=== PATIENT | male | born 1955 | race Two or more races ===

== ENCOUNTER 2023-12-23 13:02 | Outpatient (RCR) | payer MEDICARE, BC, SELFPAY ==
[2023-12-22 15:14] LABS: Basophils # (Auto) 0.1 Thou/mm3 (0.0-0.2); Basophils % (Auto) 1 % (0-2.5); Eosinophils # (Auto) 0.4 Thou/mm3 (0.0-0.5); Eosinophils % (Auto) 6 % (0-10); Hematocrit 41.3 % (41.0-53.0); Immature Granulocytes % (Auto) 0 % (0-0); Immature Granulocytes Auto 0.02 Thou/mm3 (0.00-0.00); Lymphocytes # (Auto) 1.5 Thou/mm3 (1.0-4.8); Lymphocytes % (Auto) 22 % (10-50); Mean Corpuscular HGB Conc 36.3 g/dl (31.0-37.0); Mean Corpuscular Hemoglobin 30.7 pg (25.0-35.0); Mean Corpuscular Volume 85 fL (80-100); Monocytes # (Auto) 0.4 Thou/mm3 (0.0-0.8); Monocytes % (Auto) 6 % (0-12); Neutrophils # (Auto) 4.3 Thou/mm3 (1.8-7.7); Neutrophils % (Auto) 64 % (37-80); Nucleated Red Blood Cell % 0 /100 WBC (0); Platelet Count 194 Thou/mm3 (140-440); RDW Standard Deviation 36.9 fL (35.1-43.9); Red Blood Count 4.89 Miln/mm3 (4.50-5.90); White Blood Count 6.7 Thou/mm3 (3.8-10.6)
[2023-12-22 15:39] LABS: Alanine Aminotransferase 118 U/L (10-49); Albumin, Serum 4.2 gm/dL (3.4-4.8); Albumin/Globulin Ratio 1.4 (1.2-2.2); Alkaline Phosphatase 155 U/L (46-116); Anion Gap 8 (7-16); Aspartate Amino Transferase 62 U/L (0-34); BUN/Creatinine Ratio 13 Ratio (12-20); Bilirubin,Total 0.4 mg/dL (0.3-1.2); Blood Urea Nitrogen 19 mg/dL (9-23); Calcium 9.6 mg/dL (8.3-10.6); Calcium (Corrected) 9.6 mg/dL (8.5-10.1); Chloride 100 mMol/L (98-107); Creatinine (Component) 1.5 mg/dL (0.6-1.3); Globulin 2.9 gm/dL (2.3-3.5); Glucose 372 mg/dL (74-106); Osmolality,Calculated 285 (275-295); Sodium 134 mMol/L (136-145); Thyroid Stimulating Hormone 1.31 uIU/mL (0.55-4.78); Total Protein 7.1 gm/dL (5.7-8.2); eGFR 51 See Note
== END 2024-01-15 23:59 | disposition home or self-care (01) ==
LOC: SCTC 13:02
PROVIDERS: PCP Nurse Practitioner Family; Referring Provider Nurse Practitioner Family; Visit Provider Internal Medicine Hematology & Oncology
DX: Z51.11 Encounter for antineoplastic chemotherapy (principal); C64.1 Malignant neoplasm of right kidney, except renal pelvis; Z90.5 Acquired absence of kidney; E11.9 Type 2 diabetes mellitus without complications; I10 Essential (primary) hypertension
CPT/HCPCS: 36591; 80053; 84443; 85025; 96413; A4216; J1642; J9271

== ENCOUNTER 2024-02-10 09:05 | Outpatient (RCR) | payer MEDICARE, BC, SELFPAY ==
[2024-01-19 15:53] LABS: Basophils # (Auto) 0.1 Thou/mm3 (0.0-0.2); Basophils % (Auto) 1 % (0-2.5); Eosinophils # (Auto) 0.6 Thou/mm3 (0.0-0.5); Eosinophils % (Auto) 9 % (0-10); Hematocrit 43.1 % (41.0-53.0); Hemoglobin 15.6 g/dL (13.5-16.0); Immature Granulocytes % (Auto) 0 % (0-0); Immature Granulocytes Auto 0.02 Thou/mm3 (0.00-0.00); Lymphocytes # (Auto) 1.8 Thou/mm3 (1.0-4.8); Lymphocytes % (Auto) 27 % (10-50); Mean Corpuscular HGB Conc 36.2 g/dl (31.0-37.0); Mean Corpuscular Hemoglobin 31.3 pg (25.0-35.0); Mean Corpuscular Volume 86 fL (80-100); Monocytes # (Auto) 0.5 Thou/mm3 (0.0-0.8); Monocytes % (Auto) 7 % (0-12); Neutrophils # (Auto) 3.7 Thou/mm3 (1.8-7.7); Neutrophils % (Auto) 56 % (37-80); Nucleated Red Blood Cell % 0 /100 WBC (0); Platelet Count 184 Thou/mm3 (140-440); Red Blood Count 4.99 Miln/mm3 (4.50-5.90); White Blood Count 6.6 Thou/mm3 (3.8-10.6)
[2024-01-19 16:12] LABS: Carcinoembryonic Antigen 4.2 ng/mL (0.0-5.0)
[2024-01-19 16:14] LABS: Alanine Aminotransferase 144 U/L (10-49); Albumin, Serum 4.5 gm/dL (3.4-4.8); Albumin/Globulin Ratio 1.8 (1.2-2.2); Alkaline Phosphatase 122 U/L (46-116); Anion Gap 7 (7-16); Aspartate Amino Transferase 116 U/L (0-34); BUN/Creatinine Ratio 14 Ratio (12-20); Bilirubin,Total 0.5 mg/dL (0.3-1.2); Blood Urea Nitrogen 18 mg/dL (9-23); Calcium 9.5 mg/dL (8.3-10.6); Calcium (Corrected) 9.5 mg/dL (8.5-10.1); Carbon Dioxide 26.7 mMol/L (20.0-31.0); Chloride 100 mMol/L (98-107); Creatinine (Component) 1.3 mg/dL (0.6-1.3); Globulin 2.5 gm/dL (2.3-3.5); Glucose 308 mg/dL (74-106); Osmolality,Calculated 282 (275-295); Potassium 3.8 mMol/L (3.4-5.1); Sodium 134 mMol/L (136-145); Thyroid Stimulating Hormone 0.88 uIU/mL (0.55-4.78); eGFR > 60 See Note
[2024-01-26 10:00] LABS: Basophils # (Auto) 0.1 Thou/mm3 (0.0-0.2); Basophils % (Auto) 1 % (0-2.5); Eosinophils # (Auto) 0.7 Thou/mm3 (0.0-0.5); Eosinophils % (Auto) 10 % (0-10); Hematocrit 44.3 % (41.0-53.0); Hemoglobin 15.6 g/dL (13.5-16.0); Immature Granulocytes % (Auto) 0 % (0-0); Immature Granulocytes Auto 0.01 Thou/mm3 (0.00-0.00); Lymphocytes # (Auto) 1.5 Thou/mm3 (1.0-4.8); Lymphocytes % (Auto) 22 % (10-50); Mean Corpuscular HGB Conc 35.2 g/dl (31.0-37.0); Mean Corpuscular Hemoglobin 30.4 pg (25.0-35.0); Mean Corpuscular Volume 86 fL (80-100); Monocytes # (Auto) 0.5 Thou/mm3 (0.0-0.8); Monocytes % (Auto) 7 % (0-12); Neutrophils # (Auto) 4.1 Thou/mm3 (1.8-7.7); Neutrophils % (Auto) 61 % (37-80); Nucleated Red Blood Cell % 0 /100 WBC (0); Platelet Count 168 Thou/mm3 (140-440); RDW Standard Deviation 38.6 fL (35.1-43.9); Red Blood Count 5.14 Miln/mm3 (4.50-5.90); White Blood Count 6.7 Thou/mm3 (3.8-10.6)
[2024-01-26 10:27] LABS: Alanine Aminotransferase 104 U/L (10-49); Albumin, Serum 4.5 gm/dL (3.4-4.8); Albumin/Globulin Ratio 1.6 (1.2-2.2); Alkaline Phosphatase 103 U/L (46-116); Anion Gap 7 (7-16); Aspartate Amino Transferase 81 U/L (0-34); BUN/Creatinine Ratio 11 Ratio (12-20); Bilirubin,Total 0.8 mg/dL (0.3-1.2); Blood Urea Nitrogen 16 mg/dL (9-23); Calcium 9.8 mg/dL (8.3-10.6); Calcium (Corrected) 9.8 mg/dL (8.5-10.1); Carbon Dioxide 25.6 mMol/L (20.0-31.0); Chloride 102 mMol/L (98-107); Creatinine (Component) 1.5 mg/dL (0.6-1.3); Globulin 2.8 gm/dL (2.3-3.5); Glucose 291 mg/dL (74-106); Osmolality,Calculated 282 (275-295); Potassium 3.7 mMol/L (3.4-5.1); Sodium 135 mMol/L (136-145); Thyroid Stimulating Hormone 1.58 uIU/mL (0.55-4.78); Total Protein 7.3 gm/dL (5.7-8.2); eGFR 51 See Note
[2024-01-26 11:12] LABS: Hepatitis A Antibody IgM Non Reactive (Non React); Hepatitis B Core Antibody IgM Non Reactive (Non React); Hepatitis B Surface Antigen Non Reactive (Non React); Hepatitis C Antibody Non Reactive (Non React)
--- NOTE | 2024-02-06 14:24 | CTCFLWUP_ITS ---
Patient: JAYSON GRIJALVA : 1955 Page 8 of 8 FOLLOW UP NOTE DATE OF SERVICE: 01/25/2024 NAME: JAYSON GRIJALVA ACCOUNT: [id number] : 1955 AGE: 68 INTERVAL HISTORY: Patient is doing well and here on adjuvant therapy for stage III renal cancer. ONCOLOGY HISTORY: DIAGNOSIS: Malignant neoplasm of right kidney, except renal pelvis [ICD10] C64.1 DATE OF DIAGNOSIS: 01/21/2023 clear-cell type renal cell carcinoma of right kidney status post robotic assisted nephrecto my STAGE/TNM: Stage III T1a N1 M0 TREATMENT HISTORY: Care?Plan Start?Date Cycle Day Intent Pembrolizumab?alone 06/09/2023 1 Curative?(adjuvant) Planned for 1 year of adjuvant therapy with the likely completion date of 07/04/2024 HISTORY OF PRESENT ILLNESS: Mr. Grijalva is a 68-year-old male with the following oncology history. 05/22/2021: Mr. Grijalva had ultrasound of the abdomen to evaluate the cause for abdominal pain 09/12/2021: CT of the abdomen and pelvis with IV contrast 09/26/2022: MRI of the abdomen with and without contrast 01/21/2023: Robotic right partial nephrectomy and intraoperative ultrasound 04/01/2023: CT scan of the chest abdomen and pelvis with IV contrast 04/30/2023: MRI of the abdomen with and without contrast 06/02/2023: CT-guided biopsy of the right kidney mass lesion 06/09/2023: Mr. Grijalva received first dose of adjuvant pembrolizumab. OTHER MEDICAL HISTORY/CONDITIONS: Diabetes HTN BPH Clear cell renal cancer right kidney - 01/21/23 Lap Cholecystectomy -06/2021 Robotic right partial nephrectomy - 01/21/23 - [facility] FAMILY HISTORY: Sibling: Brother - kdney- dx late 40's; sister-kidney - dx 60 SOCIAL HISTORY: Occupational?History:?Retired - [employer] Education?Level:?Completed High School Marital?Status:? Tobacco?Use?Years:?10 Tobacco Use:?2 cigarettes / day x 10 yrs. Quit - 20yrs ago ETOH?Use:?Socailly Drug?Note:?Smoke marijuana occ; Cocaine daily x 5 yrs- Quit 30+ yrs ago Social?History?Note:?Lives MEDICATIONS: 1. glipiZIDE - 10 mg 1 tab Twice a Day 2. lorazepam - 0.5 mg 1 tab Daily 3. losartan - 100 mg 1 tab Daily 4. tamsulosin - 0.4 mg 1 Capsule Daily Medications Last Reconciled by Jacqueline Ponce MA on 01/25/2024 ALLERGIES: No Known Drug Allergies REVIEW OF SYSTEMS: A complete 14-point review of systems was performed and is negative except as noted in interval histo ry. PHYSICAL EXAMINATION: VITAL SIGNS: Temperature?98.3, B/P?157/101, Oxygen?Saturation?98% Weight?198?lbs (Change?since? 4:?1.2?lbs) PAIN: 0 - No pain ECOG Performance Status: None GENERAL APPEARANCE: Appears well, in no apparent distress, appropriately interactive. HEENT: Normocephalic, no temporal wasting, normal conjunctiva, no scleral icterus, normal hearing, li ps without lesions, neck normal range of motion. CARDIOVASCULAR: Not assessed. PULMONARY: Normal respiratory effort, no respiratory distress or use of accessory muscles, speaking i n full sentences, no tachypnea. EXTREMITIES: No pedal edema or cyanosis. SKIN: Normal skin appearance. NEUROLOGIC: Alert and oriented x4. PSHYCHIATRIC: Appropriate affect, mood normal, behavior normal, intact thought and speech. LABORATORY DATA: I have personally reviewed and interpreted each of the patient?s relevant lab tests, abnormal finding s are below: Date 01/26/24 ??GLUCOSE,RANDOM?(mg/dL) 291?H ??BLOOD?UREA?NITROGEN?(mg/dL) 16 ??CREATININE?(mg/dL) 1.50?H ??SODIUM?(mmol/L) 135?L ??POTASSIUM?(mmol/L) 3.7 ??CHLORIDE?(mmol/L) 102 ??CrCl?(CandG)?(ml/min) 51.90 ??AST/SGOT?(Unit/L) 81?H ??ALT/SGPT?(Unit/L) 104?H ??ALKALINE?PHOSPHATASE?(Unit/L) 103 ??BILIRUBIN,?TOTAL?(mg/dL) 0.8 ??PROTEIN?TOTAL?(gm/dl) 7.3 ??ALBUMIN,?SERUM?(gm/dl) 4.5 ??GLOBULIN?(gm/dl) 2.8 ??ALBUMIN/GLOBULIN?RATIO 1.6 ??CALCIUM,?SERUM?(mg/dL) 9.8 ??CALCIUM?SERUM?(CORRECTED)?(mg/dL) 9.8 ASSESSMENT/PLAN: #1 stage III (pT1a, N1, cM0) clear-cell type renal cell carcinoma of the right kidney. S/p robotic a ssisted right partial nephrectomy (01/21/2023) Mr. Grijalva received first dose of adjuvant pembrolizumab on 06/09/2023. Biopsy of the right kidney mass lesion showed it to be scar tissue (06/02/2023). Patient has been on pembrolizumab since May 2023. tolerating it very well without any significant side effects. Continue pembrolizumab as per treatment plan. The plan is to give 1 year of Keytruda with stop date in June 2024 Will see him back in clinic in 2 months for follow-up #2 type 2 diabetes-follow with PCP Patient have uncontrolled diabetes as he tends to by his elevated glucose and low sodium Also noted to have worsening kidney function as well as mild transaminitis Patient advised to follow with PCP closely to control his blood sugar Advised diet and medication compliance #3 hypertension follow with PCP Uncontrolled Patient advised to follow with PCP ORDERS: CBC CMP TSH RETURN TO CLINIC: 2 months BILLING AND COMPLIANCE: I reviewed external records from providers outside my specialty as summarized above. I spent a total of 50 minutes on this patient?s care on the day of their visit excluding time spent related to any bi lled procedures. This time includes time spent with the patient as well as time spent documenting in the medical record, reviewing patients records and tests, obtaining history, placing orders, communi cating with other healthcare professionals, counseling the patient, family or caregiver, and/or care coordination for the diagnoses above. Electronically Signed by: {Object.Sanct_ID*[email or web address]@M}, {Object.Sanct_ID*[email or web address]@U} D: {Object.Sanct_Date} T: {Object.Sanct_Time} CC: PCP: Erica Tate Referring: Erica Tate This document was completed utilizing speech recognition software. Grammatical errors, random word in sertions, pronoun errors, and incomplete sentences are an occasional consequence of this system due t o software limitations, ambient noise, and hardware issues. Any formal questions or concerns about th e content, text or information contained within the body of this dictation should be directly address ed to the provider for clarification.
--- NOTE | 2024-02-06 14:26 | CTCFLWUP_ITS ---
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 Grijalva is a 68-year-old male with the following oncology history. 05/22/2021: Mr. Grijalva had ultrasound of the abdomen to evaluate the cause for abdominal pain 09/12/2021: CT of the abdomen and pelvis with IV contrast 09/26/2022: MRI of the abdomen with and without contrast 01/21/2023: Robotic right partial nephrectomy and intraoperative ultrasound 04/01/2023: CT scan of the chest abdomen and pelvis with IV contrast 04/30/2023: MRI of the abdomen with and without contrast 06/02/2023: CT-guided biopsy of the right kidney mass lesion 06/09/2023: Mr. Grijalva received first dose of adjuvant pembrolizumab. OTHER MEDICAL HISTORY/CONDITIONS: Diabetes HTN BPH Clear cell renal cancer right kidney - 01/21/23 Lap Cholecystectomy -06/2021 Robotic right partial nephrectomy - 01/21/23 - [facility] FAMILY HISTORY: Sibling: Brother - jm- dx late 40's; sister-kidney - dx 60 SOCIAL HISTORY: Occupational?History:?Retired - [employer] Education?Level:?Completed High School Marital?Status:? Tobacco?Use?Years:?10 Tobacco Use:?2 cigarettes / day x 10 yrs. Quit - 20yrs ago ETOH?Use:?Socailly Drug?Note:?Smoke marijuana occ; Cocaine daily x 5 yrs- Quit 30+ yrs ago Social?History?Note:?Lives MEDICATIONS: 1. glipiZIDE - 10 mg 1 tab Twice a Day 2. lorazepam - 0.5 mg 1 tab Daily 3. losartan - 100 mg 1 tab Daily 4. tamsulosin - 0.4 mg 1 Capsule Daily Medications Last Reconciled by Jacqueline Ponce MA on 01/25/2024 ALLERGIES: No Known Drug Allergies REVIEW OF SYSTEMS: A complete 14-point review of systems was performed and is negative except as noted in interval histo ry. PHYSICAL EXAMINATION: VITAL SIGNS: Temperature?98.3, B/P?157/101, Oxygen?Saturation?98% Weight?198?lbs (Change?since? 4:?1.2?lbs) PAIN: 0 - No pain ECOG Performance Status: GENERAL APPEARANCE: Appears well, in no apparent distress, appropriately interactive. HEENT: Normocephalic, no temporal wasting, normal conjunctiva, no scleral icterus, normal hearing, li ps without lesions, neck normal range of motion. CARDIOVASCULAR: Not assessed. PULMONARY: Normal respiratory effort, no respiratory distress or use of accessory muscles, speaking i n full sentences, no tachypnea. EXTREMITIES: No pedal edema or cyanosis. SKIN: Normal skin appearance. NEUROLOGIC: Alert and oriented x4. PSHYCHIATRIC: Appropriate affect, mood normal, behavior normal, intact thought and speech. LABORATORY DATA: I have personally reviewed and interpreted each of the patient?s relevant lab tests, abnormal finding s are below: Date 01/26/24 ??GLUCOSE,RANDOM?(mg/dL) 291?H ??BLOOD?UREA?NITROGEN?(mg/dL) 16 ??CREATININE?(mg/dL) 1.50?H ??SODIUM?(mmol/L) 135?L ??POTASSIUM?(mmol/L) 3.7 ??CHLORIDE?(mmol/L) 102 ??CrCl?(CandG)?(ml/min) 51.90 ??AST/SGOT?(Unit/L) 81?H ??ALT/SGPT?(Unit/L) 104?H ??ALKALINE?PHOSPHATASE?(Unit/L) 103 ??BILIRUBIN,?TOTAL?(mg/dL) 0.8 ??PROTEIN?TOTAL?(gm/dl) 7.3 ??ALBUMIN,?SERUM?(gm/dl) 4.5 ??GLOBULIN?(gm/dl) 2.8 ??ALBUMIN/GLOBULIN?RATIO 1.6 ??CALCIUM,?SERUM?(mg/dL) 9.8 ??CALCIUM?SERUM?(CORRECTED)?(mg/dL) 9.8 ASSESSMENT/PLAN: #1 stage III (pT1a, N1, cM0) clear-cell type renal cell carcinoma of the right kidney. S/p robotic a ssisted right partial nephrectomy (01/21/2023) Mr. Grijalva received first dose of adjuvant pembrolizumab on 06/09/2023. Biopsy of the right kidney mass lesion showed it to be scar tissue (06/02/2023). Patient has been on pembrolizumab since May 2023. tolerating it very well without any significant side effects. Continue pembrolizumab as per treatment plan. The plan is to give 1 year of Keytruda with stop date in June 2024 Will see him back in clinic in 2 months for follow-up #2 type 2 diabetes-follow with PCP Patient have uncontrolled diabetes as he tends to by his elevated glucose and low sodium Also noted to have worsening kidney function as well as mild transaminitis Patient advised to follow with PCP closely to control his blood sugar Advised diet and medication compliance #3 hypertension follow with PCP Uncontrolled Patient advised to follow with PCP CBC CMP TSH RETURN TO CLINIC: 2 months BILLING AND COMPLIANCE: I reviewed external records from providers outside my specialty as summarized above. I spent a total of 50 minutes on this patient?s care on the day of their visit excluding time spent related to any bi lled procedures. This time includes time spent with the patient as well as time spent documenting in the medical record, reviewing patients records and tests, obtaining history, placing orders, communi cating with other healthcare professionals, counseling the patient, family or caregiver, and/or care coordination for the diagnoses above. Electronically Signed by: Jordin Vargas MD T: 2:24 PM Electronically Signed by: Jordin Vargas MD T: 2:24 PM CC: This document was completed utilizing speech recognition software. Grammatical errors, random word in sertions, pronoun errors, and incomplete sentences are an occasional consequence of this system due t o software limitations, ambient noise, and hardware issues. Any formal questions or concerns about th e content, text or information contained within the body of this dictation should be directly address ed to the provider for clarification.
--- NOTE | 2024-02-06 14:35 | CTCFLWUP_ITS ---
Patient: JAYSON GRIJALVA : 1955 Page 2 of 2 FOLLOW UP NOTE DATE OF SERVICE: 01/25/2024 NAME: JAYSON GRIJALVA ACCOUNT: [id number] : 1955 AGE: 68 INTERVAL HISTORY: ONCOLOGY HISTORY: DIAGNOSIS: Malignant neoplasm of right kidney, except renal pelvis [ICD10] C64.1 DATE OF DIAGNOSIS: 01/21/2023 clear-cell type renal cell carcinoma of right kidney status post robotic assisted nephrec manjula STAGE/TNM: Stage III T1a N1 M0 TREATMENT HISTORY: Care?Plan Start?Date Cycle Day Intent Pembrolizumab?alone 06/09/2023 1 21 Curative?(adjuvant) Planned for 1 year of adjuvant therapy with the likely completion date of 07/04/2024#1 stage III (pT1a , N1, cM0) clear-cell type renal cell carcinoma of the right kidney. S/p robotic assisted right parti al nephrectomy (01/21/2023) Mr. Grijalva received first dose of adjuvant pembrolizumab on 06/09/2023. B iopsy of the right kidney mass lesion showed it to be scar tissue (06/02/2023). Patient has been on pembrolizumab since May 2023. tolerating it very well without any significant side effects. Continue pembrolizumab as per treatment plan. The plan is to give 1 year of Keytruda with stop date i n June 2024 Will see him back in clinic in 2 months for follow-up #2 type 2 diabetes-follow with PCP P atient have uncontrolled diabetes as he tends to by his elevated glucose and low sodium Also noted to have worsening kidney function as well as mild transaminitis Patient advised to follow with PCP [place] to control his blood sugar Advised diet and medication compliance #3 hypertension follow with PCP Uncontrolled Patient advised to follow with PCP CBC CMP TSH HISTORY OF PRESENT ILLNESS: Mr. Grijalva is a 68-year-old male with the following oncology history. 05/22/2021: Mr. Grijalva had ultrasound of the abdomen to evaluate the cause for abdominal pain 09/12/2021: CT of the abdomen and pelvis with IV contrast 09/26/2022: MRI of the abdomen with and without contrast 01/21/2023: Robotic right partial nephrectomy and intraoperative ultrasound 04/01/2023: CT scan of the chest abdomen and pelvis with IV contrast 04/30/2023: MRI of the abdomen with and without contrast 06/02/2023: CT-guided biopsy of the right kidney mass lesion 06/09/2023: Mr. Grijalva received first dose of adjuvant pembrolizumab. OTHER MEDICAL HISTORY/CONDITIONS: Diabetes HTN BPH Clear cell renal cancer right kidney - 01/21/23 Lap Cholecystectomy -06/2021 Robotic right partial nephrectomy - 01/21/23 - [facility] FAMILY HISTORY: Sibling: Brother - jm- dx late 40's; sister-kidney - dx 60 SOCIAL HISTORY: Occupational?History:?Retired - [employer] Education?Level:?Completed High School Marital?Status:? Tobacco?Use?Years:?10 Tobacco Use:?2 cigarettes / day x 10 yrs. Quit - 20yrs ago ETOH?Use:?Socailly Drug?Note:?Smoke marijuana occ; Cocaine daily x 5 yrs- Quit 30+ yrs ago Social?History?Note:?Lives MEDICATIONS: 1. glipiZIDE - 10 mg 1 tab Twice a Day 2. lorazepam - 0.5 mg 1 tab Daily 3. losartan - 100 mg 1 tab Daily 4. tamsulosin - 0.4 mg 1 Capsule Daily Medications Last Reconciled by Jacqueline Ponce MA on 01/25/2024 ALLERGIES: No Known Drug Allergies REVIEW OF SYSTEMS: A complete 14-point review of systems was performed and is negative except as noted in interval histo ry. PHYSICAL EXAMINATION: VITAL SIGNS: Temperature?98.3, B/P?157/101, Oxygen?Saturation?98% Weight?198?lbs (Change?since? 4:?1.2?lbs) PAIN: 0 - No pain GENERAL APPEARANCE: Appears well, in no apparent distress, appropriately interactive. HEENT: Normocephalic, no temporal wasting, normal conjunctiva, no scleral icterus, normal hearing, li ps without lesions, neck normal range of motion. CARDIOVASCULAR: Not assessed. PULMONARY: Normal respiratory effort, no respiratory distress or use of accessory muscles, speaking i n full sentences, no tachypnea. EXTREMITIES: No pedal edema or cyanosis. SKIN: Normal skin appearance. NEUROLOGIC: Alert and oriented x4. PSHYCHIATRIC: Appropriate affect, mood normal, behavior normal, intact thought and speech. LABORATORY DATA: I have personally reviewed and interpreted each of the patient?s relevant lab tests, abnormal finding s are below: Date 01/26/24 ??GLUCOSE,RANDOM?(mg/dL) 291?H ??BLOOD?UREA?NITROGEN?(mg/dL) 16 ??CREATININE?(mg/dL) 1.50?H ??SODIUM?(mmol/L) 135?L ??POTASSIUM?(mmol/L) 3.7 ??CHLORIDE?(mmol/L) 102 ??CrCl?(CandG)?(ml/min) 51.90 ??AST/SGOT?(Unit/L) 81?H ??ALT/SGPT?(Unit/L) 104?H ??ALKALINE?PHOSPHATASE?(Unit/L) 103 ??BILIRUBIN,?TOTAL?(mg/dL) 0.8 ??PROTEIN?TOTAL?(gm/dl) 7.3 ??ALBUMIN,?SERUM?(gm/dl) 4.5 ??GLOBULIN?(gm/dl) 2.8 ??ALBUMIN/GLOBULIN?RATIO 1.6 ??CALCIUM,?SERUM?(mg/dL) 9.8 ??CALCIUM?SERUM?(CORRECTED)?(mg/dL) 9.8 ASSESSMENT/PLAN: #1 stage III (pT1a, N1, cM0) clear-cell type renal cell carcinoma of the right kidney. S/p robotic a ssisted right partial nephrectomy (01/21/2023) Mr. Grijalva received first dose of adjuvant pembrolizumab on 06/09/2023. Biopsy of the right kidney mass lesion showed it to be scar tissue (06/02/2023). Patient has been on pembrolizumab since May 2023. tolerating it very well without any significant side effects. Continue pembrolizumab as per treatment plan. The plan is to give 1 year of Keytruda with stop date in June 2024 As patient have transaminitis will repeat labs and proceed with the Keytruda once labs have normalize d follow-up on the CT chest abdomen pelvis #2 type 2 diabetes-follow with PCP Patient have uncontrolled diabetes as he tends to by his elevated glucose and low sodium Also noted to have worsening kidney function as well as mild transaminitis Patient advised to follow with PCP closely to control his blood sugar Advised diet and medication compliance #3 hypertension follow with PCP Uncontrolled Patient advised to follow with PCP CBC CMP TSH CBC CMP TSH T4 cortisol CT scan chest abdomen pelvis RETURN TO CLINIC: 4 weeks BILLING AND COMPLIANCE: I reviewed external records from providers outside my specialty as summarized above. I spent a total of 50 minutes on this patient?s care on the day of their visit excluding time spent related to any bi lled procedures. This time includes time spent with the patient as well as time spent documenting in the medical record, reviewing patients records and tests, obtaining history, placing orders, communi cating with other healthcare professionals, counseling the patient, family or caregiver, and/or care coordination for the diagnoses above. Electronically Signed by: Jordin Vargas MD T: 2:32 PM CC: PCP: Erica Tate Referring: Erica Tate This document was completed utilizing speech recognition software. Grammatical errors, random word in sertions, pronoun errors, and incomplete sentences are an occasional consequence of this system due t o software limitations, ambient noise, and hardware issues. Any formal questions or concerns about th e content, text or information contained within the body of this dictation should be directly address ed to the provider for clarification.
[2024-02-08 06:44] LABS: Cortisol,total,LC/MS/MS* 17.2 mcg/dL; T3,Total* 116 ng/dL (76-181)
[2024-02-08 08:57] LABS: Basophils % (Auto) 1 % (0-2.5); Eosinophils # (Auto) 0.7 Thou/mm3 (0.0-0.5); Eosinophils % (Auto) 11 % (0-10); Hematocrit 38.5 % (41.0-53.0); Hemoglobin 13.3 g/dL (13.5-16.0); Immature Granulocytes % (Auto) 0 % (0-0); Immature Granulocytes Auto 0.02 Thou/mm3 (0.00-0.00); Lymphocytes # (Auto) 1.1 Thou/mm3 (1.0-4.8); Lymphocytes % (Auto) 17 % (10-50); Mean Corpuscular HGB Conc 34.5 g/dl (31.0-37.0); Mean Corpuscular Volume 87 fL (80-100); Monocytes # (Auto) 0.4 Thou/mm3 (0.0-0.8); Monocytes % (Auto) 7 % (0-12); Neutrophils # (Auto) 4.2 Thou/mm3 (1.8-7.7); Neutrophils % (Auto) 65 % (37-80); Nucleated Red Blood Cell % 0 /100 WBC (0); Platelet Count 163 Thou/mm3 (140-440); RDW Standard Deviation 38.3 fL (35.1-43.9); Red Blood Count 4.43 Miln/mm3 (4.50-5.90); White Blood Count 6.5 Thou/mm3 (3.8-10.6)
[2024-02-08 09:06] LABS: Carcinoembryonic Antigen 3.8 ng/mL (0.0-5.0)
[2024-02-08 09:07] LABS: Alanine Aminotransferase 52 U/L (10-49); Albumin, Serum 4.2 gm/dL (3.4-4.8); Albumin/Globulin Ratio 1.7 (1.2-2.2); Alkaline Phosphatase 105 U/L (46-116); Anion Gap 6 (7-16); Aspartate Amino Transferase 33 U/L (0-34); BUN/Creatinine Ratio 19 Ratio (12-20); Bilirubin,Total 0.4 mg/dL (0.3-1.2); Blood Urea Nitrogen 25 mg/dL (9-23); Calcium 9.3 mg/dL (8.3-10.6); Calcium (Corrected) 9.3 mg/dL (8.5-10.1); Carbon Dioxide 25.4 mMol/L (20.0-31.0); Chloride 109 mMol/L (98-107); Creatinine (Component) 1.3 mg/dL (0.6-1.3); Globulin 2.5 gm/dL (2.3-3.5); Glucose 218 mg/dL (74-106); Osmolality,Calculated 290 (275-295); Potassium 3.8 mMol/L (3.4-5.1); Sodium 140 mMol/L (136-145); Thyroid Stimulating Hormone 0.65 uIU/mL (0.55-4.78); Total Protein 6.7 gm/dL (5.7-8.2); eGFR > 60 See Note
== END 2024-02-15 23:59 | disposition home or self-care (01) ==
LOC: SCTC 09:05
PROVIDERS: PCP Nurse Practitioner Family; Referring Provider Nurse Practitioner Family; Visit Provider Internal Medicine Hematology & Oncology
DX: Z51.11 Encounter for antineoplastic chemotherapy (principal); C64.1 Malignant neoplasm of right kidney, except renal pelvis; Z90.5 Acquired absence of kidney; E11.65 Type 2 diabetes mellitus with hyperglycemia; I10 Essential (primary) hypertension
CPT/HCPCS: 36591; 80053; 80074; 82378; 82533; 84443; 84480; 85025; 96413; 99212; A4216; J1642; J9271; G0463

== ENCOUNTER → 2024-02-14 | Outpatient (CLI) | payer MEDICARE, BC, SELFPAY ==
--- NOTE | 2024-02-14 10:00 | XR_ITS ---
Examination: CT chest, without intravenous contrast. CT abdomen, without intravenous contrast. CT pelvis, without intravenous contrast. 2-D sagittal and coronal reconstructions. 3-D reconstructions. Date and time of exam:February 14, 2024 1018 hours INDICATIONS: Diagnosis malignant neoplasm of the kidney, restaging COMPARISON: June 02, 2023 CTDI vol (mgy) 19.7 DLP (MGycm)[id number] Technique: Multiple CT images, 3.0 mm slice thickness, obtained chest, abdomen, pelvis, with the high-resolution 64 slice scanner.. Sagittal and coronal 2-D reconstructions are obtained. 3-D reconstructions Low dose protocols were performed. One or more of the following dose reduction techniques were used; automated exposure control, adjustment of the mA and/or KV according to patient size, use of iterative reconstruction technique. Findings: AP dimension ascending thoracic aorta 4.1 cm Pulmonary artery segments are not enlarged No paratracheal tracheobronchial or bronchopulmonary adenopathy Moderate calcification left anterior descending coronary artery 5 mm pulmonary nodule right upper lobe image 84 No pneumonia or pulmonary edema, no pleural disease No visualized liver or splenic lesion Absent gallbladder No pancreatic or adrenal mass Complex partially cystic mass lateral margin upper pole left kidney 3.2 cm Abnormal hyperdense upper pelvic mass 25 mm, axial image 148 Partial right nephrectomy Aortic calcification no aneurysmal dilatation No pericecal inflammatory change Scattered colonic diverticulosis Urinary bladder intact Transverse prostate dimension 4.3 cm Severe osteopenia with advanced degenerative disc disease L4-L5, L5-S1 IMPRESSION: 3.2 cm complex partially cystic mass lateral margin upper pole left kidney Hyperdense upper left renal pelvic mass 25 mm Recommend MRI abdomen kidneys follow-up pre and postcontrast
== END | disposition home or self-care (01) ==
LOC: CCTX 09:48
PROVIDERS: PCP Nurse Practitioner Family; Referring Provider Urology; Visit Provider Physician Assistant
DX: N28.1 Cyst of kidney, acquired (principal); R19.00 Intra-abdominal and pelvic swelling, mass and lump, unspecified site; C64.1 Malignant neoplasm of right kidney, except renal pelvis
CPT/HCPCS: 71270; 74178; A4649; Q9967

== ENCOUNTER 2024-03-02 07:25 | Outpatient (RCR) | payer MEDICARE, SELFPAY ==
[2024-03-01 13:09] LABS: Alanine Aminotransferase 57 U/L (10-49); Albumin, Serum 4.6 gm/dL (3.4-4.8); Albumin/Globulin Ratio 1.7 (1.2-2.2); Alkaline Phosphatase 110 U/L (46-116); Anion Gap 11 (7-16); Aspartate Amino Transferase 47 U/L (0-34); BUN/Creatinine Ratio 14 Ratio (12-20); Bilirubin,Total 0.4 mg/dL (0.3-1.2); Blood Urea Nitrogen 17 mg/dL (9-23); Calcium 9.6 mg/dL (8.3-10.6); Calcium (Corrected) 9.6 mg/dL (8.5-10.1); Carbon Dioxide 25.4 mMol/L (20.0-31.0); Chloride 107 mMol/L (98-107); Creatinine (Component) 1.2 mg/dL (0.6-1.3); Globulin 2.7 gm/dL (2.3-3.5); Glucose 134 mg/dL (74-106); Osmolality,Calculated 288 (275-295); Potassium 3.6 mMol/L (3.4-5.1); Sodium 143 mMol/L (136-145); Thyroid Stimulating Hormone 0.62 uIU/mL (0.55-4.78); Total Protein 7.3 gm/dL (5.7-8.2); eGFR > 60 See Note
[2024-03-01 13:11] LABS: Carcinoembryonic Antigen 4.3 ng/mL (0.0-5.0)
[2024-03-01 15:52] LABS: Basophils # (Auto) 0.1 Thou/mm3 (0.0-0.2); Basophils % (Auto) 1 % (0-2.5); Eosinophils # (Auto) 0.8 Thou/mm3 (0.0-0.5); Eosinophils % (Auto) 12 % (0-10); Hematocrit 41.9 % (41.0-53.0); Hemoglobin 14.6 g/dL (13.5-16.0); Immature Granulocytes % (Auto) 0 % (0-0); Immature Granulocytes Auto 0.01 Thou/mm3 (0.00-0.00); Lymphocytes # (Auto) 1.4 Thou/mm3 (1.0-4.8); Lymphocytes % (Auto) 22 % (10-50); Mean Corpuscular HGB Conc 34.8 g/dl (31.0-37.0); Mean Corpuscular Volume 86 fL (80-100); Monocytes # (Auto) 0.4 Thou/mm3 (0.0-0.8); Monocytes % (Auto) 6 % (0-12); Neutrophils # (Auto) 3.5 Thou/mm3 (1.8-7.7); Neutrophils % (Auto) 58 % (37-80); Nucleated Red Blood Cell % 0 /100 WBC (0); Platelet Count 180 Thou/mm3 (140-440); RDW Standard Deviation 38.6 fL (35.1-43.9); Red Blood Count 4.87 Miln/mm3 (4.50-5.90); White Blood Count 6.1 Thou/mm3 (3.8-10.6)
== END 2024-03-17 23:59 | disposition home or self-care (01) ==
LOC: SCTC 07:25
PROVIDERS: PCP Nurse Practitioner Family; Referring Provider Nurse Practitioner Family; Visit Provider Internal Medicine Hematology & Oncology
DX: Z51.11 Encounter for antineoplastic chemotherapy (principal); C64.1 Malignant neoplasm of right kidney, except renal pelvis; Z90.5 Acquired absence of kidney; E11.9 Type 2 diabetes mellitus without complications; I10 Essential (primary) hypertension; Z79.84 Long term (current) use of oral hypoglycemic drugs
CPT/HCPCS: 36415; 36591; 80053; 80061; 82043; 82378; 82570; 84439; 84443; 85025; 96413; J1642; J7050; J9271

== ENCOUNTER → 2024-03-02 | Outpatient (CLI) | payer MEDICARE, SELFPAY ==
[2024-03-02 08:31] LABS: Basophils # (Auto) 0.1 Thou/mm3 (0.0-0.2); Basophils % (Auto) 1 % (0-2.5); Eosinophils # (Auto) 0.4 Thou/mm3 (0.0-0.5); Eosinophils % (Auto) 6 % (0-10); Hematocrit 43.3 % (41.0-53.0); Hemoglobin 14.7 g/dL (13.5-16.0); Immature Granulocytes % (Auto) 0 % (0-0); Immature Granulocytes Auto 0.03 Thou/mm3 (0.00-0.00); Lymphocytes # (Auto) 1.6 Thou/mm3 (1.0-4.8); Lymphocytes % (Auto) 21 % (10-50); Mean Corpuscular HGB Conc 33.9 g/dl (31.0-37.0); Mean Corpuscular Hemoglobin 29.5 pg (25.0-35.0); Mean Corpuscular Volume 87 fL (80-100); Monocytes # (Auto) 0.5 Thou/mm3 (0.0-0.8); Monocytes % (Auto) 7 % (0-12); Neutrophils % (Auto) 65 % (37-80); Nucleated Red Blood Cell % 0 /100 WBC (0); Platelet Count 196 Thou/mm3 (140-440); RDW Standard Deviation 38.4 fL (35.1-43.9); Red Blood Count 4.98 Miln/mm3 (4.50-5.90); White Blood Count 7.6 Thou/mm3 (3.8-10.6)
[2024-03-02 08:56] LABS: Alanine Aminotransferase 55 U/L (10-49); Albumin, Serum 4.4 gm/dL (3.4-4.8); Albumin/Globulin Ratio 1.7 (1.2-2.2); Alkaline Phosphatase 92 U/L (46-116); Anion Gap 8 (7-16); Aspartate Amino Transferase 36 U/L (0-34); BUN/Creatinine Ratio 17 Ratio (12-20); Bilirubin,Total 0.4 mg/dL (0.3-1.2); Blood Urea Nitrogen 20 mg/dL (9-23); Carbon Dioxide 27.6 mMol/L (20.0-31.0); Cardiac Risk Estimate 3.4 RATIO (4.0-6.7); Chloride 106 mMol/L (98-107); Cholesterol 156 mg/dL (132-200); Creatinine (Component) 1.2 mg/dL (0.6-1.3); Free T4 (Free Thyroxine) 1.08 ng/dL (0.89-1.76); Globulin 2.6 gm/dL (2.3-3.5); Glucose 124 mg/dL (74-106); HDL Cholesterol 46 mg/dL (40-60); LDL Cholesterol,Calculated 82 mg/dL (0-130); Osmolality,Calculated 286 (275-295); Sodium 142 mMol/L (136-145); Thyroid Stimulating Hormone 0.53 uIU/mL (0.55-4.78); Triglycerides 138 mg/dL (30-150); eGFR > 60 See Note
[2024-03-02 09:01] LABS: Creatinine MALB Rnd Ur 159 mg/dL (30-125); Microalbumin Creat Ratio 54 mg/gCrea (<30); Microalbumin, Random Urine 86 mg/L (0-300)
== END | disposition home or self-care (01) ==
PROVIDERS: PCP Nurse Practitioner Family; Referring Provider Nurse Practitioner Family; Visit Provider Nurse Practitioner Family
DX: E11.21 Type 2 diabetes mellitus with diabetic nephropathy (principal)
CPT/HCPCS: 36415; 80053; 80061; 82043; 82570; 84439; 84443; 85025

== ENCOUNTER → 2024-03-07 | Outpatient (BNVA) | payer MEDICARE, SELFPAY | END | disposition home or self-care (01) | PROVIDERS: PCP Nurse Practitioner Family; Referring Provider Nurse Practitioner Family; Visit Provider Urology | DX: N40.1 Benign prostatic hyperplasia with lower urinary tract symptoms (principal); N13.8 Other obstructive and reflux uropathy; C64.1 Malignant neoplasm of right kidney, except renal pelvis; E11.9 Type 2 diabetes mellitus without complications; I10 Essential (primary) hypertension; E66.9 Obesity, unspecified; Z68.30 Body mass index [BMI] 30.0-30.9, adult; E78.00 Pure hypercholesterolemia, unspecified | CPT/HCPCS: 81003; 99212; G0463 ==

== ENCOUNTER → 2024-03-28 | Outpatient (CLI) | payer MEDICARE, SELFPAY ==
--- NOTE | 2024-03-28 15:30 | XR_ITS ---
Examination: MRI abdomen with intravenous contrast. MRI abdomen without intravenous contrast. Date and time of exam: March 28, 2024 1618 hours Comparison April 29, 2023 INDICATIONS: Diagnosis malignant neoplasm right kidney except renal pelvis, post partial nephrectomy January 2023 restaging Technique: Multiple axial, sagittal and coronal sections of the abdomen obtained. Transverse images, TR 6020, TE 107. T1 weighted transverse images, TR 582, TE 9.5. T2-weighted sagittal images, TR 4000, TE 105. T2-weighted sagittal images, TR 4000, TE 5. Coronal images, TR 4210, TE 107. Axial and coronal images are obtained post 20 cc intravenous injection, gadolinium. Findings: No focal liver or splenic lesions Partial right nephrectomy with no solid enhancing right renal mass Left pelvic central solid mass remains, 24 x 20 mm which shows mild enhancement Nonenhancing complex cyst lateral posterior margin left kidney No abdominal lymphadenopathy Negative for ascites Aorta normal size No bowel obstruction No pancreatic mass IMPRESSION: Partial right nephrectomy with no solid enhancing right renal mass Again noted left renal central solid mass 24 x 20 mm which shows mild enhancement
== END | disposition home or self-care (01) ==
PROVIDERS: PCP Nurse Practitioner Family; Referring Provider Urology; Visit Provider Urology
DX: N28.89 Other specified disorders of kidney and ureter (principal); Z90.5 Acquired absence of kidney; C64.1 Malignant neoplasm of right kidney, except renal pelvis
CPT/HCPCS: 74183; A9579

== ENCOUNTER 2024-04-13 13:27 | Outpatient (RCR) | payer MEDICARE, SELFPAY ==
[2024-03-22 14:15] LABS: Basophils % (Auto) 1 % (0-2.5); Eosinophils # (Auto) 0.4 Thou/mm3 (0.0-0.5); Eosinophils % (Auto) 5 % (0-10); Hematocrit 45.4 % (41.0-53.0); Hemoglobin 15.5 g/dL (13.5-16.0); Immature Granulocytes % (Auto) 0 % (0-0); Immature Granulocytes Auto 0.02 Thou/mm3 (0.00-0.00); Lymphocytes # (Auto) 1.3 Thou/mm3 (1.0-4.8); Lymphocytes % (Auto) 19 % (10-50); Mean Corpuscular HGB Conc 34.1 g/dl (31.0-37.0); Mean Corpuscular Hemoglobin 30.3 pg (25.0-35.0); Mean Corpuscular Volume 89 fL (80-100); Monocytes # (Auto) 0.3 Thou/mm3 (0.0-0.8); Monocytes % (Auto) 4 % (0-12); Neutrophils # (Auto) 4.8 Thou/mm3 (1.8-7.7); Neutrophils % (Auto) 71 % (37-80); Nucleated Red Blood Cell % 0 /100 WBC (0); Platelet Count 153 Thou/mm3 (140-440); RDW Standard Deviation 40.7 fL (35.1-43.9); Red Blood Count 5.11 Miln/mm3 (4.50-5.90); White Blood Count 6.8 Thou/mm3 (3.8-10.6)
[2024-03-22 14:37] LABS: Alanine Aminotransferase 45 U/L (10-49); Albumin, Serum 4.3 gm/dL (3.4-4.8); Albumin/Globulin Ratio 1.5 (1.2-2.2); Alkaline Phosphatase 86 U/L (46-116); Anion Gap 6 (7-16); Aspartate Amino Transferase 38 U/L (0-34); BUN/Creatinine Ratio 16 Ratio (12-20); Bilirubin,Total 0.9 mg/dL (0.3-1.2); Blood Urea Nitrogen 21 mg/dL (9-23); Calcium 9.4 mg/dL (8.3-10.6); Calcium (Corrected) 9.4 mg/dL (8.5-10.1); Carbon Dioxide 27.7 mMol/L (20.0-31.0); Chloride 108 mMol/L (98-107); Creatinine (Component) 1.3 mg/dL (0.6-1.3); Free T4 (Free Thyroxine) 1.09 ng/dL (0.89-1.76); Globulin 2.8 gm/dL (2.3-3.5); Glucose 188 mg/dL (74-106); Osmolality,Calculated 291 (275-295); Potassium 3.8 mMol/L (3.4-5.1); Sodium 142 mMol/L (136-145); Thyroid Stimulating Hormone 1.04 uIU/mL (0.55-4.78); Total Protein 7.1 gm/dL (5.7-8.2); eGFR > 60 See Note
[2024-03-22 15:39] LABS: Carcinoembryonic Antigen 3.5 ng/mL (0.0-5.0)
--- NOTE | 2024-03-28 13:56 | CTCFLWUP_ITS ---
Patient: JAYSON GRIJALVA : 1955 Page 6 of 7 FOLLOW UP NOTE DATE OF SERVICE: 03/28/2024 NAME: JAYSON GRIJALVA ACCOUNT: [id number] : 1955 AGE: 68 INTERVAL HISTORY: Mild itchiness. No other complains. Scheduled fo rmri ONCOLOGY HISTORY: DIAGNOSIS: Malignant neoplasm of right kidney, except renal pelvis [ICD10] C64.1 DATE OF DIAGNOSIS: 05/22/2021 STAGE/TNM: [id number] TREATMENT HISTORY: Care?Plan Start?Date Cycle Day Intent Pembrolizumab?alone 06/09/2023 1 21 Curative?(adjuvant) HISTORY OF PRESENT ILLNESS: Mr. Grijalva is a 68-year-old male with the following oncology history. 05/22/2021: Mr. Grijalva had ultrasound of the abdomen to evaluate the cause for abdominal pain 09/12/2021: CT of the abdomen and pelvis with IV contrast 09/26/2022: MRI of the abdomen with and without contrast 01/21/2023: Robotic right partial nephrectomy and intraoperative ultrasound 04/01/2023: CT scan of the chest abdomen and pelvis with IV contrast 04/30/2023: MRI of the abdomen with and without contrast 06/02/2023: CT-guided biopsy of the right kidney mass lesion 06/09/2023: Mr. Grijalva received first dose of adjuvant pembrolizumab. OTHER MEDICAL HISTORY/CONDITIONS: Diabetes HTN BPH Clear cell renal cancer right kidney - 01/21/23 Lap Cholecystectomy -06/2021 Robotic right partial nephrectomy - 01/21/23 - [facility] FAMILY HISTORY: Sibling: Brother - kdney- dx late 40's; sister-kidney - dx 60 SOCIAL HISTORY: Occupational?History:?Retired - [employer] Education?Level:?Completed High School Marital?Status:? Tobacco?Use?Years:?10 Tobacco Use:?2 cigarettes / day x 10 yrs. Quit - 20yrs ago ETOH?Use:?Socailly Drug?Note:?Smoke marijuana occ; Cocaine daily x 5 yrs- Quit 30+ yrs ago Social?History?Note:?Lives MEDICATIONS: 1. glipiZIDE - 10 mg 1 tab Twice a Day 2. lorazepam - 0.5 mg 1 tab Daily 3. losartan - 100 mg 1 tab Daily 4. tamsulosin - 0.4 mg 1 Capsule Daily Medications Last Reconciled by Jacqueline Ponce MA on 03/28/2024 ALLERGIES: No Known Drug Allergies REVIEW OF SYSTEMS: A complete 14-point review of systems was performed and is negative except as noted in interval history. PHYSICAL EXAMINATION: VITAL SIGNS: PAIN: 0 - No pain ECOG Performance Status: 0 - Asymptomatic and fully active GENERAL APPEARANCE: Appears well, in no apparent distress, appropriately interactive. HEENT: Normocephalic, no temporal wasting, normal conjunctiva, no scleral icterus, normal hearing, lips without lesions, neck normal range of motion. CARDIOVASCULAR: Not assessed. PULMONARY: Normal respiratory effort, no respiratory distress or use of accessory muscles, speaking in full sentences, no tachypnea. EXTREMITIES: No pedal edema or cyanosis. SKIN: Normal skin appearance. NEUROLOGIC: Alert and oriented x4. PSHYCHIATRIC: Appropriate affect, mood normal, behavior normal, intact thought and speech. LABORATORY DATA: I have personally reviewed and interpreted each of the patient?s relevant lab tests, abnormal findings are below: Date 03/22/24 ??GLUCOSE,RANDOM?(mg/dL) 188?H ??BLOOD?UREA?NITROGEN?(mg/dL) 21 ??CREATININE?(mg/dL) 1.30 ??SODIUM?(mmol/L) 142 ??POTASSIUM?(mmol/L) 3.8 ??CHLORIDE?(mmol/L) 108?H ??CrCl?(CandG)?(ml/min) 61.21 ??AST/SGOT?(Unit/L) 38?H ??ALT/SGPT?(Unit/L) 45 ??ALKALINE?PHOSPHATASE?(Unit/L) 86 ??BILIRUBIN,?TOTAL?(mg/dL) 0.9 ??PROTEIN?TOTAL?(gm/dl) 7.1 ??ALBUMIN,?SERUM?(gm/dl) 4.3 ??GLOBULIN?(gm/dl) 2.8 ??ALBUMIN/GLOBULIN?RATIO 1.5 ??CALCIUM,?SERUM?(mg/dL) 9.4 ??CALCIUM?SERUM?(CORRECTED)?(mg/dL) 9.4 ASSESSMENT/PLAN: #1 stage III (pT1a, N1, cM0) clear-cell type renal cell carcinoma of the right kidney. S/p robotic assisted right partial nephrectomy (01/21/2023) Mr. Grijalva received first dose of adjuvant pembrolizumab on 06/09/2023. Biopsy of the right kidney mass lesion showed it to be scar tissue (06/02/2023). Patient has been on pembrolizumab since May 2023. tolerating it very well without any significant side effects. Continue pembrolizumab as per treatment plan. The plan is to give 1 year of Keytruda with stop date in June 2024 Will see him back in clinic in 2 months for follow-up #2 type 2 diabetes-follow with PCP Patient have uncontrolled diabetes as he tends to by his elevated glucose and low sodium Also noted to have worsening kidney function as well as mild transaminitis Patient advised to follow with PCP closely to control his blood sugar Advised diet and medication compliance #3 hypertension follow with PCP Uncontrolled Patient advised to follow with PCP CBC CMP TSH RETURN TO CLINIC: BILLING AND COMPLIANCE: I reviewed external records from providers outside my specialty as summarized above. I spent a total of 50 minutes on this patient?s care on the day of their visit excluding time spent related to any billed procedures. This time includes time spent with the patient as well as time spent documenting in the medical record, reviewing patients records and tests, obtaining history, placing orders, communicating with other healthcare professionals, counseling the patient, family or caregiver, and/or care coordination for the diagnoses above. Electronically Signed by: Jordin Vargas MD T: 1:53 PM CC: PCP: Erica Tate Referring: Erica Tate This document was completed utilizing speech recognition software. Grammatical errors, random word insertions, pronoun errors, and incomplete sentences are an occasional consequence of this system due to software limitations, ambient noise, and hardware issues. Any formal questions or concerns about the content, text or information contained within the body of this dictation should be directly addressed to the provider for clarification.
[2024-04-12 14:29] LABS: Basophils # (Auto) 0.1 Thou/mm3 (0.0-0.2); Basophils % (Auto) 1 % (0-2.5); Eosinophils # (Auto) 0.5 Thou/mm3 (0.0-0.5); Eosinophils % (Auto) 7 % (0-10); Hematocrit 47.9 % (41.0-53.0); Hemoglobin 16.6 g/dL (13.5-16.0); Immature Granulocytes % (Auto) 0 % (0-0); Immature Granulocytes Auto 0.01 Thou/mm3 (0.00-0.00); Lymphocytes # (Auto) 1.4 Thou/mm3 (1.0-4.8); Lymphocytes % (Auto) 17 % (10-50); Mean Corpuscular HGB Conc 34.7 g/dl (31.0-37.0); Mean Corpuscular Hemoglobin 29.8 pg (25.0-35.0); Mean Corpuscular Volume 86 fL (80-100); Monocytes # (Auto) 0.7 Thou/mm3 (0.0-0.8); Monocytes % (Auto) 8 % (0-12); Neutrophils # (Auto) 5.3 Thou/mm3 (1.8-7.7); Neutrophils % (Auto) 67 % (37-80); Nucleated Red Blood Cell % 0 /100 WBC (0); Platelet Count 200 Thou/mm3 (140-440); RDW Standard Deviation 39.6 fL (35.1-43.9); Red Blood Count 5.57 Miln/mm3 (4.50-5.90); White Blood Count 7.9 Thou/mm3 (3.8-10.6)
[2024-04-12 14:52] LABS: Carcinoembryonic Antigen 3.3 ng/mL (0.0-5.0)
[2024-04-12 14:53] LABS: Alanine Aminotransferase 26 U/L (10-49); Albumin, Serum 4.7 gm/dL (3.4-4.8); Albumin/Globulin Ratio 1.5 (1.2-2.2); Alkaline Phosphatase 109 U/L (46-116); Anion Gap 12 (7-16); Aspartate Amino Transferase 25 U/L (0-34); BUN/Creatinine Ratio 14 Ratio (12-20); Bilirubin,Total 0.8 mg/dL (0.3-1.2); Blood Urea Nitrogen 18 mg/dL (9-23); Calcium 10.3 mg/dL (8.3-10.6); Calcium (Corrected) 10.3 mg/dL (8.5-10.1); Carbon Dioxide 24.5 mMol/L (20.0-31.0); Chloride 102 mMol/L (98-107); Creatinine (Component) 1.3 mg/dL (0.6-1.3); Globulin 3.2 gm/dL (2.3-3.5); Glucose 114 mg/dL (74-106); Osmolality,Calculated 278 (275-295); Potassium 3.5 mMol/L (3.4-5.1); Sodium 138 mMol/L (136-145); Thyroid Stimulating Hormone 1.38 uIU/mL (0.55-4.78); Total Protein 7.9 gm/dL (5.7-8.2); eGFR > 60 See Note
== END 2024-04-14 23:59 | disposition home or self-care (01) ==
LOC: SCTC 13:27
PROVIDERS: PCP Nurse Practitioner Family; Referring Provider Nurse Practitioner Family; Visit Provider Internal Medicine Hematology & Oncology
DX: Z51.11 Encounter for antineoplastic chemotherapy (principal); C64.1 Malignant neoplasm of right kidney, except renal pelvis; Z90.5 Acquired absence of kidney; E11.65 Type 2 diabetes mellitus with hyperglycemia; R74.01 Elevation of levels of liver transaminase levels; I10 Essential (primary) hypertension
CPT/HCPCS: 36591; 74183; 80053; 82378; 84439; 84443; 85025; 96360; 96413; 99212; A4216; A9579; J1642; J7040; J7050; J9271; G0463

== ENCOUNTER 2024-05-04 13:03 | Outpatient (RCR) | payer MEDICARE, SELFPAY ==
[2024-05-03 14:39] LABS: Basophils # (Auto) 0.1 Thou/mm3 (0.0-0.2); Basophils % (Auto) 1 % (0-2.5); Eosinophils # (Auto) 1.2 Thou/mm3 (0.0-0.5); Eosinophils % (Auto) 14 % (0-10); Hematocrit 45.6 % (41.0-53.0); Immature Granulocytes % (Auto) 0 % (0-0); Immature Granulocytes Auto 0.01 Thou/mm3 (0.00-0.00); Lymphocytes # (Auto) 1.7 Thou/mm3 (1.0-4.8); Lymphocytes % (Auto) 20 % (10-50); Mean Corpuscular HGB Conc 35.1 g/dl (31.0-37.0); Mean Corpuscular Volume 85 fL (80-100); Monocytes # (Auto) 0.5 Thou/mm3 (0.0-0.8); Monocytes % (Auto) 6 % (0-12); Neutrophils # (Auto) 4.8 Thou/mm3 (1.8-7.7); Neutrophils % (Auto) 58 % (37-80); Nucleated Red Blood Cell % 0 /100 WBC (0); Platelet Count 197 Thou/mm3 (140-440); RDW Standard Deviation 41.1 fL (35.1-43.9); Red Blood Count 5.34 Miln/mm3 (4.50-5.90); White Blood Count 8.3 Thou/mm3 (3.8-10.6)
[2024-05-03 15:10] LABS: Carcinoembryonic Antigen 3.7 ng/mL (0.0-5.0)
[2024-05-03 15:56] LABS: Alanine Aminotransferase 28 U/L (10-49); Albumin, Serum 4.3 gm/dL (3.4-4.8); Albumin/Globulin Ratio 1.5 (1.2-2.2); Alkaline Phosphatase 104 U/L (46-116); Anion Gap 11 (7-16); Aspartate Amino Transferase 20 U/L (0-34); BUN/Creatinine Ratio 14 Ratio (12-20); Bilirubin,Total 0.5 mg/dL (0.3-1.2); Blood Urea Nitrogen 19 mg/dL (9-23); Calcium 9.6 mg/dL (8.3-10.6); Calcium (Corrected) 9.6 mg/dL (8.5-10.1); Carbon Dioxide 25.7 mMol/L (20.0-31.0); Chloride 104 mMol/L (98-107); Creatinine (Component) 1.4 mg/dL (0.6-1.3); Globulin 2.8 gm/dL (2.3-3.5); Glucose 150 mg/dL (74-106); Osmolality,Calculated 286 (275-295); Potassium 3.4 mMol/L (3.4-5.1); Sodium 141 mMol/L (136-145); Thyroid Stimulating Hormone 1.13 uIU/mL (0.55-4.78); Total Protein 7.1 gm/dL (5.7-8.2); eGFR 55 See Note
== END 2024-05-15 23:59 | disposition home or self-care (01) ==
LOC: SCTC 13:03
PROVIDERS: PCP Nurse Practitioner Family; Referring Provider Nurse Practitioner Family; Visit Provider Internal Medicine Hematology & Oncology
DX: Z51.11 Encounter for antineoplastic chemotherapy (principal); C64.1 Malignant neoplasm of right kidney, except renal pelvis; Z90.5 Acquired absence of kidney; N28.89 Other specified disorders of kidney and ureter; E11.9 Type 2 diabetes mellitus without complications; I10 Essential (primary) hypertension; R74.01 Elevation of levels of liver transaminase levels; Z79.84 Long term (current) use of oral hypoglycemic drugs
CPT/HCPCS: 36591; 80053; 82378; 84443; 85025; 96413; A4216; J1642; J7040; J7050; J9271

== ENCOUNTER → 2024-06-02 | Outpatient (BNVA) | payer MEDICARE, SELFPAY | END | disposition home or self-care (01) | PROVIDERS: PCP Nurse Practitioner Family; Referring Provider Nurse Practitioner Family; Visit Provider Student in an Organized Health Care Education/Training Program | DX: Z76.89 Persons encountering health services in other specified circumstances (principal) | CPT/HCPCS: 99212; G0463 ==

== ENCOUNTER 2024-06-13 10:52 | Outpatient (RCR) | payer MEDICARE, SELFPAY ==
[2024-05-24 14:29] LABS: Basophils # (Auto) 0.1 Thou/mm3 (0.0-0.2); Basophils % (Auto) 1 % (0-2.5); Eosinophils # (Auto) 0.7 Thou/mm3 (0.0-0.5); Eosinophils % (Auto) 10 % (0-10); Hematocrit 48.9 % (41.0-53.0); Hemoglobin 17.1 g/dL (13.5-16.0); Immature Granulocytes % (Auto) 0 % (0-0); Immature Granulocytes Auto 0.02 Thou/mm3 (0.00-0.00); Lymphocytes # (Auto) 1.4 Thou/mm3 (1.0-4.8); Lymphocytes % (Auto) 18 % (10-50); Mean Corpuscular Hemoglobin 29.2 pg (25.0-35.0); Mean Corpuscular Volume 84 fL (80-100); Monocytes # (Auto) 0.6 Thou/mm3 (0.0-0.8); Monocytes % (Auto) 8 % (0-12); Neutrophils # (Auto) 4.8 Thou/mm3 (1.8-7.7); Neutrophils % (Auto) 63 % (37-80); Nucleated Red Blood Cell % 0 /100 WBC (0); Platelet Count 211 Thou/mm3 (140-440); RDW Standard Deviation 40.8 fL (35.1-43.9); Red Blood Count 5.85 Miln/mm3 (4.50-5.90); White Blood Count 7.5 Thou/mm3 (3.8-10.6)
[2024-05-24 14:52] LABS: Carcinoembryonic Antigen 3.4 ng/mL (0.0-5.0)
[2024-05-24 14:55] LABS: Alanine Aminotransferase 31 U/L (10-49); Albumin, Serum 4.5 gm/dL (3.4-4.8); Albumin/Globulin Ratio 1.5 (1.2-2.2); Alkaline Phosphatase 92 U/L (46-116); Anion Gap 11 (7-16); Aspartate Amino Transferase 30 U/L (0-34); BUN/Creatinine Ratio 13 Ratio (12-20); Bilirubin,Total 0.9 mg/dL (0.3-1.2); Blood Urea Nitrogen 19 mg/dL (9-23); Calcium 9.7 mg/dL (8.3-10.6); Calcium (Corrected) 9.7 mg/dL (8.5-10.1); Carbon Dioxide 25.6 mMol/L (20.0-31.0); Chloride 103 mMol/L (98-107); Creatinine (Component) 1.5 mg/dL (0.6-1.3); Globulin 3.1 gm/dL (2.3-3.5); Glucose 106 mg/dL (74-106); Osmolality,Calculated 281 (275-295); Potassium 3.8 mMol/L (3.4-5.1); Sodium 140 mMol/L (136-145); Thyroid Stimulating Hormone 1.59 uIU/mL (0.55-4.78); Total Protein 7.6 gm/dL (5.7-8.2); eGFR 51 See Note
[2024-06-12 12:04] LABS: Basophils # (Auto) 0.1 Thou/mm3 (0.0-0.2); Basophils % (Auto) 1 % (0-2.5); Eosinophils % (Auto) 12 % (0-10); Hematocrit 44.4 % (41.0-53.0); Hemoglobin 15.7 g/dL (13.5-16.0); Immature Granulocytes % (Auto) 0 % (0-0); Immature Granulocytes Auto 0.02 Thou/mm3 (0.00-0.00); Lymphocytes # (Auto) 1.6 Thou/mm3 (1.0-4.8); Lymphocytes % (Auto) 19 % (10-50); Mean Corpuscular HGB Conc 35.4 g/dl (31.0-37.0); Mean Corpuscular Hemoglobin 29.7 pg (25.0-35.0); Mean Corpuscular Volume 84 fL (80-100); Monocytes # (Auto) 0.6 Thou/mm3 (0.0-0.8); Monocytes % (Auto) 7 % (0-12); Neutrophils % (Auto) 60 % (37-80); Nucleated Red Blood Cell % 0 /100 WBC (0); Platelet Count 201 Thou/mm3 (140-440); RDW Standard Deviation 39.9 fL (35.1-43.9); Red Blood Count 5.29 Miln/mm3 (4.50-5.90); White Blood Count 8.2 Thou/mm3 (3.8-10.6)
[2024-06-12 12:11] LABS: Carcinoembryonic Antigen 3.4 ng/mL (0.0-5.0)
[2024-06-12 12:14] LABS: Alanine Aminotransferase 22 U/L (10-49); Albumin, Serum 4.3 gm/dL (3.4-4.8); Albumin/Globulin Ratio 1.5 (1.2-2.2); Alkaline Phosphatase 120 U/L (46-116); Anion Gap 8 (7-16); Aspartate Amino Transferase 21 U/L (0-34); BUN/Creatinine Ratio 22 Ratio (12-20); Bilirubin,Total 0.4 mg/dL (0.3-1.2); Blood Urea Nitrogen 38 mg/dL (9-23); Calcium 9.4 mg/dL (8.3-10.6); Calcium (Corrected) 9.4 mg/dL (8.5-10.1); Carbon Dioxide 24.6 mMol/L (20.0-31.0); Chloride 104 mMol/L (98-107); Creatinine (Component) 1.7 mg/dL (0.6-1.3); Globulin 2.8 gm/dL (2.3-3.5); Glucose 253 mg/dL (74-106); Osmolality,Calculated 291 (275-295); Sodium 137 mMol/L (136-145); Thyroid Stimulating Hormone 1.13 uIU/mL (0.55-4.78); Total Protein 7.1 gm/dL (5.7-8.2); eGFR 44 See Note
--- NOTE | 2024-06-13 14:20 | CTCFLWUP_ITS ---
Patient: JAYSON GRIJALVA : 1955 Page 2 of 2 FOLLOW UP NOTE DATE OF SERVICE: 06/13/2024 NAME: JAYSON GRIJALVA ACCOUNT: [id number] : 1955 AGE: 68 INTERVAL HISTORY: Patient still have itchiness. Jayson Grijalva, a male with stage 2 kidney cancer, presented with persistent itching following pembrolizumab immunotherapy. His history includes right nephrectomy and a stable 2cm enhancement on his left kidney. He reported another physician recently identified three growths on his left kidney described as cancer. Examination showed clear skin without inflammation. Management included discontinuing steroids, continuing Benadryl, applying zinc oxide buttercream, and referral to [facility] for further evaluation and to dermatology for pruritus assessment. Chief Complaint Persistent itching, concern about 3 pieces of growth on left kidney described as cancer by another doctor History of Present Illness Jayson Grijalva, a patient with a history of kidney cancer stage 2, presents for follow-up with ongoing itching as his primary concern. The patient reports severe itching all over his body, describing it as really bad. He denies scratching despite the intensity of the itching. The patient previously received a cream and steroid treatment, which he reports helped alleviate his symptoms. He expresses concern about how long the itching will persist and inquires about the duration of medication effects in his system. The patient's kidney cancer treatment history is notable. He received pembrolizumab immunotherapy, with the first dose administered in May 2023 and the treatment concluding in June 2024. His most recent dose of chemotherapy and immunotherapy was on May 25. Recently, the patient had an appointment with Dr. Degn and Dr. Zaldivar from [place]. During this visit, Dr. Zaldivar reportedly informed the patient of three pieces of growth on his left kidney, which he described as cancer. The patient was told that further tests in [place] would be necessary, and there were plans to potentially remove these growths. However, the patient expresses some confusion about this diagnosis, as previous scans had shown a small 2-centimeter enhancement on the left side that had been stable for some time. The patient also mentions his family history, noting that out of his mother's seven children, four have had cancer. He reports having undergone genetic testing but states he never received the results. His mother is 92 years old and in good health, while his father about 30 years ago due to complications from a stroke. Medical History - Stage 2 kidney cancer, treated with pembrolizumab (immunotherapy) - Itching, treated with cream and steroids Surgical History - Right nephrectomy for kidney cancer, date not specified Medications and Supplements - Pembrolizumab - For kidney cancer, stage 2 - First dose: May 2023 - Stop date: June 2024 - Steroid cream - Helped with itching - Benadryl - Buttercream zinc oxide - For itching Family History - Mother: Living, age 92, good health - Father: approximately 30 years ago due to stroke complications - Siblings: 4 out of 7 siblings have had cancer - Brother: Age 65, recently diagnosed with large kidney tumor, scheduled for surgery Social History - Family Structure: Patient's mother is 92 years old and in good health. Father almost 30 years ago due to a stroke. Patient has siblings, including a 65-year-old brother. - Environmental Factors: Patient lives in [place], which is mentioned to have potentially problematic water quality. Review of Systems Skin: Positive for itching. Physical Examination Skin: Clear and moisturized. No dryness, vasculitis, or inflammation observed. Laboratory, Imaging, and Diagnostic Test Results - Imaging (date not specified): - Left kidney: Small enhancement, approximately 2 cm ONCOLOGY HISTORY: DIAGNOSIS: Malignant neoplasm of right kidney, except renal pelvis [ICD10] C64.1 DATE OF DIAGNOSIS: 05/22/2021 STAGE/TNM: [id number] TREATMENT HISTORY: Care?Plan Start?Date Cycle Day Intent Pembrolizumab?alone 06/09/2023 1 21 Curative?(adjuvant) HISTORY OF PRESENT ILLNESS: Mr. Grijalva is a 68-year-old male with the following oncology history. 05/22/2021: Mr. Grijalva had ultrasound of the abdomen to evaluate the cause for abdominal pain 09/12/2021: CT of the abdomen and pelvis with IV contrast 09/26/2022: MRI of the abdomen with and without contrast 01/21/2023: Robotic right partial nephrectomy and intraoperative ultrasound 04/01/2023: CT scan of the chest abdomen and pelvis with IV contrast 04/30/2023: MRI of the abdomen with and without contrast 06/02/2023: CT-guided biopsy of the right kidney mass lesion 06/09/2023: Mr. Grijalva received first dose of adjuvant pembrolizumab. OTHER MEDICAL HISTORY/CONDITIONS: Diabetes HTN BPH Clear cell renal cancer right kidney - 01/21/23 Lap Cholecystectomy -06/2021 Robotic right partial nephrectomy - 01/21/23 - [facility] FAMILY HISTORY: Sibling: Brother - kdney- dx late 40's; sister-kidney - dx 60 SOCIAL HISTORY: Occupational?History:?Retired - [employer] Education?Level:?Completed High School Marital?Status:? Tobacco?Use?Years:?10 Tobacco Use:?2 cigarettes / day x 10 yrs. Quit - 20yrs ago ETOH?Use:?Socailly Drug?Note:?Smoke marijuana occ; Cocaine daily x 5 yrs- Quit 30+ yrs ago Social?History?Note:?Lives MEDICATIONS: 1. Allergy Relief (cetirizine) - 10 mg 1 Capsule Daily 2. glipiZIDE - 10 mg 1 tab Twice a Day 3. lorazepam - 0.5 mg 1 tab Daily 4. losartan - 100 mg 1 tab Daily 5. tamsulosin - 0.4 mg 1 Capsule Daily Medications Last Reconciled by Mable Turcios MA on 06/13/2024 ALLERGIES: No Known Drug Allergies REVIEW OF SYSTEMS: A complete 14-point review of systems was performed and is negative except as noted in interval history. PHYSICAL EXAMINATION: VITAL SIGNS: Temperature?99, B/P?115/84, Oxygen?Saturation?96% Weight?200?lbs (Change?since?06/12/24:?0.6?lbs) PAIN: 0 - No pain ECOG Performance Status: 1 - Symptomatic; ambulatory; restricted in strenuous activity GENERAL APPEARANCE: Appears well, in no apparent distress, appropriately interactive. HEENT: Normocephalic, no temporal wasting, normal conjunctiva, no scleral icterus, normal hearing, lips without lesions, neck normal range of motion. CARDIOVASCULAR: Not assessed. PULMONARY: Normal respiratory effort, no respiratory distress or use of accessory muscles, speaking in full sentences, no tachypnea. EXTREMITIES: No pedal edema or cyanosis. SKIN: Normal skin appearance. No obvious rash or excoriations. Well-hydrated skin NEUROLOGIC: Alert and oriented x4. PSHYCHIATRIC: Appropriate affect, mood normal, behavior normal, intact thought and speech. LABORATORY DATA: I have personally reviewed and interpreted each of the patient?s relevant lab tests, abnormal findings are below: Date 05/24/24 06/12/24 ??WHITE?BLOOD?COUNT?(Thou/mm3) ? 8.2 ??RED?BLOOD?COUNT?(Miln/mm3) ? 5.29 ??HEMOGLOBIN?(gm/dl) ? 15.7 ??HEMATOCRIT?(%) ? 44.4 ??PLATELET?COUNT?(Thou/mm3) ? 201 ??NEUTROPHILS?%,?AUTO?(%) ? 60 ??LYMPH?%,?AUTO?(%) ? 19 ??NEUTROPHILS,?AUTO?(Thou/mm3) ? 5.0 ??GLUCOSE,RANDOM?(mg/dL) 106 253?H ??BLOOD?UREA?NITROGEN?(mg/dL) 19 38?H ??CREATININE?(mg/dL) 1.50?H 1.70?H ??SODIUM?(mmol/L) 140 137 ??POTASSIUM?(mmol/L) 3.8 4.0 ??CHLORIDE?(mmol/L) 103 104 ??CrCl?(CandG)?(ml/min) 51.77 45.96 ??AST/SGOT?(Unit/L) 30 21 ??ALT/SGPT?(Unit/L) 31 22 ??ALKALINE?PHOSPHATASE?(Unit/L) 92 120?H ??BILIRUBIN,?TOTAL?(mg/dL) 0.9 0.4 ??PROTEIN?TOTAL?(gm/dl) 7.6 7.1 ??ALBUMIN,?SERUM?(gm/dl) 4.5 4.3 ??GLOBULIN?(gm/dl) 3.1 2.8 ??ALBUMIN/GLOBULIN?RATIO 1.5 1.5 ??CALCIUM,?SERUM?(mg/dL) 9.7 9.4 ??CALCIUM?SERUM?(CORRECTED)?(mg/dL) 9.7 9.4 ??CEA?(O*)?(ng/ml) ? 3.4 ASSESSMENT/PLAN: #1 stage III (pT1a, N1, cM0) clear-cell type renal cell carcinoma of the right kidney. S/p robotic assisted right partial nephrectomy (01/21/2023) Mr. Grijalva received first dose of adjuvant pembrolizumab on 06/09/2023. Biopsy of the right kidney mass lesion showed it to be scar tissue (06/02/2023). Patient has been on pembrolizumab since May 2023. And her last dose was in May 2024 Patient have itchiness Continue pembrolizumab as per treatment plan. The plan is to give 1 year of Keytruda with stop date in June 2024 Jayson Grijalva, male patient with a history of kidney cancer stage 2, presenting with persistent itching following pembrolizumab immunotherapy. Kidney Cancer, Stage 2 Assessment: Patient has a history of stage 2 kidney cancer treated with pembrolizumab immunotherapy. First dose was administered in May 2023, with the treatment course ending in June 2024. A small enhancement of about 2 centimeters was noted on the left kidney in March, which has been present for an extended period without significant change. Recent consultation with another physician raised concerns about potential cancer growth on the left kidney, but this information requires verification and further investigation. Plan: - Refer patient to [facility] for further evaluation and imaging - Await communication from Dr. Zaldivar or Dr. Castillo regarding scheduling of additional tests at [facility] - If no contact is made by [facility] team, consider sending a new referral - Follow up with patient in 3 months or earlier if needed Post-immunotherapy Pruritus Assessment: Patient experiencing persistent, generalized itching following pembrolizumab immunotherapy. Skin appears clear and moisturized, with no signs of vasculitis or inflammation. Previous treatment with topical steroids and cream provided some relief. Plan: - Discontinue steroid use to avoid suppressing immunity - Continue Benadryl as needed for itching - Apply non-allopathic products such as zinc oxide buttercream to affected areas - Maintain good skin moisturization - Refer to dermatology for specialist evaluation - Advise patient that immunotherapy may remain in system for an extended period Family History of Cancer Assessment: Patient reports a significant family history of cancer, with 4 out of 7 siblings affected. Previous genetic testing was performed, but results were not received or reviewed. Plan: - Review previous genetic testing results if available - Consider environmental factors as potential contributors to family cancer incidence - Continue to monitor patient closely given family history #2 type 2 diabetes-follow with PCP Patient have uncontrolled diabetes as he tends to by his elevated glucose and low sodium Also noted to have worsening kidney function as well as mild transaminitis Patient advised to follow with PCP closely to control his blood sugar Advised diet and medication compliance #3 hypertension follow with PCP Uncontrolled Patient advised to follow with PCP CBC CMP TSH ORDERS: Order # Description [id number] Follow Up Appointment MD RETURN TO CLINIC: BILLING AND COMPLIANCE: I reviewed external records from providers outside my specialty as summarized above. I spent a total of 50 minutes on this patient?s care on the day of their visit excluding time spent related to any billed procedures. This time includes time spent with the patient as well as time spent documenting in the medical record, reviewing patients records and tests, obtaining history, placing orders, communicating with other healthcare professionals, counseling the patient, family or caregiver, and/or care coordination for the diagnoses above. Electronically Signed by: Jordin Vargas MD T: 2:18 PM CC: PCP: Erica Tate Referring: Erica Tate This document was completed utilizing speech recognition software. Grammatical errors, random word insertions, pronoun errors, and incomplete sentences are an occasional consequence of this system due to software limitations, ambient noise, and hardware issues. Any formal questions or concerns about the content, text or information contained within the body of this dictation should be directly addressed to the provider for clarification.
== END 2024-06-14 23:59 | disposition home or self-care (01) ==
LOC: SCTC 10:52
PROVIDERS: PCP Nurse Practitioner Family; Referring Provider Nurse Practitioner Family; Visit Provider Internal Medicine Hematology & Oncology
DX: Z51.11 Encounter for antineoplastic chemotherapy (principal); C64.1 Malignant neoplasm of right kidney, except renal pelvis; Z90.5 Acquired absence of kidney; L29.9 Pruritus, unspecified; T45.1X5D Adverse effect of antineoplastic and immunosuppressive drugs, subsequent encounter; Z80.9 Family history of malignant neoplasm, unspecified; N28.89 Other specified disorders of kidney and ureter
CPT/HCPCS: 36591; 80053; 82378; 84443; 85025; 96413; 99212; A4216; J1642; J2997; J7050; J9271; G0463

== ENCOUNTER → 2024-07-17 | Outpatient (CLI) | payer MEDICARE, SELFPAY ==
--- NOTE | 2024-07-17 09:57 | XR_ITS ---
Examination: CT brain head without contrast. 2-D sagittal coronal reconstructions Date and time of exam:July 17, 2024 1028 hours INDICATIONS: Headaches right-sided Sinha's palsy 3 weeks CTDI: vol (mGy):53.7 DLP: (mGycm):1071 Technique: Multiple CT axial sections of the brain have been obtained, 5 mm slice thickness. Contrast has not been administered. 2-D sagittal, coronal reconstructions have been obtained Low dose protocols were performed. One or more of the following dose reduction techniques were used; automated exposure control, adjustment of the mA and/or KV according to patient size, use of iterative reconstruction technique. Findings: No significant ventricular enlargement. 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 No mass effect or midline shift Basal cisterns are not remarkable. Fourth ventricle is midline. Cranial vault intact. Prominent ethmoid and right sphenoid sinusitis Impression: Negative for acute hemorrhage, mass effect or midline shift As clinically warranted, consider brain MRI follow-up, pre and postcontrast
== END | disposition home or self-care (01) ==
LOC: SCAT 09:47
PROVIDERS: PCP Nurse Practitioner Family; Referring Provider Nurse Practitioner Family; Visit Provider Nurse Practitioner Family
DX: G51.0 Bell's palsy (principal)
CPT/HCPCS: 70450

== ENCOUNTER → 2024-09-01 | Outpatient (CLI) | payer MEDICARE, BC, SELFPAY ==
--- NOTE | 2024-09-01 | XR_ITS ---
Examination: PA lateral chest 2 views TECHNIQUE: Upright PA and lateral chest 2 views Date and time: September 01, 2024 0732 hours Comparison June 21, 2007. INDICATIONS: Diagnosis kidney cancer, pre-op FINDINGS: Normal heart size. No pneumonia or pulmonary edema. Right internal jugular Port-A-Cath tip SVC satisfactory position IMPRESSION: No active disease.
== END | disposition home or self-care (01) ==
PROVIDERS: PCP Family Medicine; Referring Provider Nurse Practitioner Family; Visit Provider Nurse Practitioner Family
DX: R05.1 Acute cough (principal)
CPT/HCPCS: 71046

== ENCOUNTER → 2024-09-04 | Outpatient (BNVA) | payer MEDICARE, BC, SELFPAY | END | disposition home or self-care (01) | PROVIDERS: PCP Nurse Practitioner Family; Referring Provider Nurse Practitioner Family; Visit Provider Urology | DX: N40.1 Benign prostatic hyperplasia with lower urinary tract symptoms (principal); N13.8 Other obstructive and reflux uropathy; C64.1 Malignant neoplasm of right kidney, except renal pelvis; E66.9 Obesity, unspecified; Z68.29 Body mass index [BMI] 29.0-29.9, adult; I12.9 Hypertensive chronic kidney disease with stage 1 through stage 4 chronic kidney disease, or unspecified chronic kidney disease; E11.22 Type 2 diabetes mellitus with diabetic chronic kidney disease; N18.9 Chronic kidney disease, unspecified; E78.00 Pure hypercholesterolemia, unspecified | CPT/HCPCS: 81003; 99212; G0463 ==

== ENCOUNTER 2024-09-13 11:30 | Outpatient (RCR) | payer MEDICARE, BC, SELFPAY ==
[2024-09-12 08:55] LABS: Basophils # (Auto) 0.1 Thou/mm3 (0.0-0.2); Basophils % (Auto) 1 % (0-2.5); Eosinophils # (Auto) 1.0 Thou/mm3 (0.0-0.5); Eosinophils % (Auto) 15 % (0-10); Hematocrit 42.5 % (41.0-53.0); Hemoglobin 14.4 g/dL (13.5-16.0); Immature Granulocytes Auto 0.02 Thou/mm3 (0.00-0.00); Lymphocytes # (Auto) 1.4 Thou/mm3 (1.0-4.8); Lymphocytes % (Auto) 22 % (10-50); Mean Corpuscular HGB Conc 33.9 g/dl (31.0-37.0); Mean Corpuscular Hemoglobin 29.4 pg (25.0-35.0); Mean Corpuscular Volume 87 fL (80-100); Monocytes # (Auto) 0.5 Thou/mm3 (0.0-0.8); Monocytes % (Auto) 7 % (0-12); Neutrophils # (Auto) 3.5 Thou/mm3 (1.8-7.7); Neutrophils % (Auto) 55 % (37-80); Nucleated Red Blood Cell # 0.00 Thou/mm3 (0.00-0.00); Nucleated Red Blood Cell % 0 /100 WBC (0); Platelet Count 176 Thou/mm3 (140-440); RDW Standard Deviation 42.5 fL (35.1-43.9); Red Blood Count 4.90 Miln/mm3 (4.50-5.90); White Blood Count 6.5 Thou/mm3 (3.8-10.6)
[2024-09-12 09:16] LABS: Alanine Aminotransferase 24 U/L (10-49); Albumin, Serum 4.0 gm/dL (3.4-4.8); Albumin/Globulin Ratio 1.5 (1.2-2.2); Alkaline Phosphatase 112 U/L (46-116); Anion Gap 10 (7-16); Aspartate Amino Transferase 31 U/L (0-34); BUN/Creatinine Ratio 9 Ratio (12-20); Bilirubin,Total 0.4 mg/dL (0.3-1.2); Blood Urea Nitrogen 12 mg/dL (9-23); Calcium 9.2 mg/dL (8.3-10.6); Calcium (Corrected) 9.2 mg/dL (8.5-10.1); Carbon Dioxide 24.9 mMol/L (20.0-31.0); Carcinoembryonic Antigen 3.0 ng/mL (0.0-5.0); Chloride 103 mMol/L (98-107); Creatinine (Component) 1.4 mg/dL (0.6-1.3); Globulin 2.7 gm/dL (2.3-3.5); Glucose 259 mg/dL (74-106); Osmolality,Calculated 284 (275-295); Potassium 4.1 mMol/L (3.4-5.1); Sodium 138 mMol/L (136-145); Thyroid Stimulating Hormone 1.50 uIU/mL (0.55-4.78); Total Protein 6.7 gm/dL (5.7-8.2); eGFR 55 See Note
--- NOTE | 2024-09-24 22:06 | CTCFLWUP_ITS ---
Patient: JAYSON GRIJALVA : 1955 Page 7 of 9 FOLLOW UP NOTE DATE OF SERVICE: 09/13/2024 NAME: JAYSON GRIJALVA ACCOUNT: [id number] : 1955 AGE: 69 INTERVAL HISTORY: Patient still have itchiness. But has improved. Patient have eczema. His eczema has worsened since on immunotherapy. Patient had his last immunotherapy few months ago. Jayson Grijalva, a male with stage 2 kidney cancer, presented with persistent itching following pembrolizumab immunotherapy. His history includes right nephrectomy and a stable 2cm enhancement on his left kidney. He reported another physician recently identified three growths on his left kidney described as cancer. Examination showed clear skin without inflammation. Management included discontinuing steroids, continuing Benadryl, applying zinc oxide buttercream, and referral to [facility] for further evaluation and to dermatology for pruritus assessment. Chief Complaint Persistent itching, concern about 3 pieces of growth on left kidney described as cancer by urologist. Patient is being evaluated by urology at [facility] for possible recurrence of cancer on his left kidney. History of Present Illness Jayson Grijalva, a patient with a history of kidney cancer stage 2, presents for follow-up with ongoing itching as his primary concern. The patient reports severe itching all over his body, describing it as really bad. He denies scratching despite the intensity of the itching. The patient previously received a cream and steroid treatment, which he reports helped alleviate his symptoms. He expresses concern about how long the itching will persist and inquires about the duration of medication effects in his system. The patient's kidney cancer treatment history is notable. He received pembrolizumab immunotherapy, with the first dose administered in May 2023 and the treatment concluding in June 2024. His most recent dose of chemotherapy and immunotherapy was on May 25. Recently, the patient had an appointment with Dr. Deng and Dr. Zaldivar from [place]. During this visit, Dr. Zaldivar reportedly informed the patient of three pieces of growth on his left kidney, which he described as cancer. The patient was told that further tests in [place] would be necessary, and there were plans to potentially remove these growths. However, the patient expresses some confusion about this diagnosis, as previous scans had shown a small 2-centimeter enhancement on the left side that had been stable for some time. The patient also mentions his family history, noting that out of his mother's seven children, four have had cancer. He reports having undergone genetic testing but states he never received the results. His mother is 92 years old and in good health, while his father about 30 years ago due to complications from a stroke. Medical History - Stage 2 kidney cancer, treated with pembrolizumab (immunotherapy) - Itching, treated with cream and steroids Surgical History - Right nephrectomy for kidney cancer, date not specified Medications and Supplements - Pembrolizumab - For kidney cancer, stage 2 - First dose: May 2023 - Stop date: June 2024 - Steroid cream - Helped with itching - Benadryl - Buttercream zinc oxide - For itching Family History - Mother: Living, age 92, good health - Father: approximately 30 years ago due to stroke complications - Siblings: 4 out of 7 siblings have had cancer - Brother: Age 65, recently diagnosed with large kidney tumor, scheduled for surgery Social History - Family Structure: Patient's mother is 92 years old and in good health. Father almost 30 years ago due to a stroke. Patient has siblings, including a 68-year-old brother. - Environmental Factors: Patient lives in [place], which is mentioned to have potentially problematic water quality. Review of Systems Skin: Positive for itching. Physical Examination Skin: Clear and moisturized. No dryness, vasculitis, or inflammation observed. Laboratory, Imaging, and Diagnostic Test Results - Imaging (date not specified): - Left kidney: Small enhancement, approximately 2 cm ONCOLOGY HISTORY: DIAGNOSIS: Malignant neoplasm of right kidney, except renal pelvis [ICD10] C64.1 DATE OF DIAGNOSIS: 05/22/2021 STAGE/TNM: [id number] TREATMENT HISTORY: Care?Plan Start?Date Cycle Day Intent Pembrolizumab?alone 06/09/2023 1 21 Curative?(adjuvant) HISTORY OF PRESENT ILLNESS: Mr. Grijalva is a 69-year-old male with the following oncology history. 05/22/2021: Mr. Grijalva had ultrasound of the abdomen to evaluate the cause for abdominal pain 09/12/2021: CT of the abdomen and pelvis with IV contrast 09/26/2022: MRI of the abdomen with and without contrast 01/21/2023: Robotic right partial nephrectomy and intraoperative ultrasound 04/01/2023: CT scan of the chest abdomen and pelvis with IV contrast 04/30/2023: MRI of the abdomen with and without contrast 06/02/2023: CT-guided biopsy of the right kidney mass lesion 06/09/2023: Mr. Grijalva received first dose of adjuvant pembrolizumab. OTHER MEDICAL HISTORY/CONDITIONS: Diabetes HTN BPH Clear cell renal cancer right kidney - 01/21/23 Lap Cholecystectomy -06/2021 Robotic right partial nephrectomy - 01/21/23 - [facility] FAMILY HISTORY: Sibling: Brother - jm- dx late 40's; sister-kidney - dx 60 SOCIAL HISTORY: Occupational?History:?Retired - [employer] Education?Level:?Completed High School Marital?Status:? Tobacco?Use?Years:?10 Tobacco Use:?2 cigarettes / day x 10 yrs. Quit - 20yrs ago ETOH?Use:?Socailly Drug?Note:?Smoke marijuana occ; Cocaine daily x 5 yrs- Quit 30+ yrs ago Social?History?Note:?Lives MEDICATIONS: 1. Allergy Relief (cetirizine) - 10 mg 1 Capsule Daily 2. glipiZIDE - 10 mg 1 tab Twice a Day 3. lorazepam - 0.5 mg 1 tab Daily 4. losartan - 100 mg 1 tab Daily 5. tamsulosin - 0.4 mg 1 Capsule Daily Medications Last Reconciled by Mable Judd MD on 09/13/2024 ALLERGIES: No Known Drug Allergies REVIEW OF SYSTEMS: A complete 14-point review of systems was performed and is negative except as noted in interval history. PHYSICAL EXAMINATION: VITAL SIGNS: Temperature?99.3, B/P?130/81, Oxygen?Saturation?92% Weight?207?lbs (Change?since?09/12/24:?-1?lbs) PAIN: 0 - No pain ECOG Performance Status: None GENERAL APPEARANCE: Appears well, in no apparent distress, appropriately interactive. HEENT: Normocephalic, no temporal wasting, normal conjunctiva, no scleral icterus, normal hearing, lips without lesions, neck normal range of motion. CARDIOVASCULAR: Not assessed. PULMONARY: Normal respiratory effort, no respiratory distress or use of accessory muscles, speaking in full sentences, no tachypnea. EXTREMITIES: No pedal edema or cyanosis. SKIN: Normal skin appearance. No obvious rash or excoriations. Well-hydrated skin NEUROLOGIC: Alert and oriented x4. PSHYCHIATRIC: Appropriate affect, mood normal, behavior normal, intact thought and speech. LABORATORY DATA: I have personally reviewed and interpreted each of the patient?s relevant lab tests, abnormal findings are below: Date 06/12/24 09/12/24 ??WHITE?BLOOD?COUNT?(Thou/mm3) ? 6.5 ??RED?BLOOD?COUNT?(Miln/mm3) ? 4.90 ??HEMOGLOBIN?(gm/dl) ? 14.4 ??HEMATOCRIT?(%) ? 42.5 ??PLATELET?COUNT?(Thou/mm3) ? 176 ??NEUTROPHILS?%,?AUTO?(%) ? 55 ??LYMPH?%,?AUTO?(%) ? 22 ??NEUTROPHILS,?AUTO?(Thou/mm3) ? 3.5 ??GLUCOSE,RANDOM?(mg/dL) ? 259?H ??BLOOD?UREA?NITROGEN?(mg/dL) ? 12 ??CREATININE?(mg/dL) ? 1.40?H ??SODIUM?(mmol/L) ? 138 ??POTASSIUM?(mmol/L) ? 4.1 ??CHLORIDE?(mmol/L) ? 103 ??CrCl?(CandG)?(ml/min) ? 56.16 ??AST/SGOT?(Unit/L) ? 31 ??ALT/SGPT?(Unit/L) ? 24 ??ALKALINE?PHOSPHATASE?(Unit/L) ? 112 ??BILIRUBIN,?TOTAL?(mg/dL) ? 0.4 ??PROTEIN?TOTAL?(gm/dl) ? 6.7 ??ALBUMIN,?SERUM?(gm/dl) ? 4.0 ??GLOBULIN?(gm/dl) ? 2.7 ??ALBUMIN/GLOBULIN?RATIO ? 1.5 ??CALCIUM,?SERUM?(mg/dL) ? 9.2 ??CALCIUM?SERUM?(CORRECTED)?(mg/dL) ? 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 S/p robotic assisted right partial nephrectomy (01/21/2023) Mr. Grijalva received first dose of adjuvant pembrolizumab on 06/09/2023. Biopsy of the right kidney mass lesion showed it to be scar tissue (06/02/2023). Patient has been on pembrolizumab since May 2023. And her last dose was in May 2024 Patient have itchiness Patient has completed 1 year of immunotherapy. Patient have eczema which is likely cause of his itching Patient completed taper of steroid Advised to apply hydrocortisone cream as needed Follow-up with dermatology kidney Cancer, Stage 2 Assessment: Patient has a history of stage 2 kidney cancer treated with pembrolizumab immunotherapy. First dose was administered in May 2023, with the treatment course ending in June 2024. A small enhancement of about 2 centimeters was noted on the left kidney in March, which has been present for an extended period without significant change. Recent consultation with another physician raised concerns about potential cancer growth on the left kidney, but this information requires verification and further investigation. Plan: Patient has follow-up with Dr. Zaldivar Post-immunotherapy Pruritus - Continue Benadryl as needed for itching - Apply zinc oxide buttercream to affected areas - Maintain good skin moisturization Follow-up with rheumatology Family History of Cancer Assessment: Patient reports a significant family history of cancer, with 4 out of 7 siblings affected. Previous genetic testing was performed, but results were not received or reviewed. Plan: - Review previous genetic testing results if available - Consider environmental factors as potential contributors to family cancer incidence - Continue to monitor patient closely given family history #2 type 2 diabetes-follow with PCP Patient have uncontrolled diabetes as he tends to by his elevated glucose and low sodium Also noted to have worsening kidney function as well as mild transaminitis Patient advised to follow with PCP closely to control his blood sugar Advised diet and medication compliance #3 hypertension follow with PCP Uncontrolled Patient advised to follow with PCP CBC CMP TSH ORDERS: Order # Description RETURN TO CLINIC: I reviewed the diagnosis, prognosis, and recommended treatment/procedure options with the patient (and/or their legal abrasives sales representative), including the potential benefits, risks, side effects and alternative therapies. We also discussed the option of no treatment and the possibility of clinical trial participation, if applicable. All questions were addressed, and they demonstrated understanding. They provided informed consent to proceed with the proposed plan of care. BILLING AND COMPLIANCE: I reviewed external records from providers outside my specialty as summarized above. I spent a total of 50 minutes on this patient?s care on the day of their visit excluding time spent related to any billed procedures. This time includes time spent with the patient as well as time spent documenting in the medical record, reviewing patients records and tests, obtaining history, placing orders, communicating with other healthcare professionals, counseling the patient, family or caregiver, and/or care coordination for the diagnoses above. Electronically Signed by: {Object.Sanct_ID*PnP.NameFL@M}, {Object.Sanct_ID*PnP.Suffix@U} D: {Object.Sanct_Date} T: {Object.Sanct_Time} CC: PCP: Erica Tate Referring: Erica Tate This document was completed utilizing speech recognition software. Grammatical errors, random word insertions, pronoun errors, and incomplete sentences are an occasional consequence of this system due to software limitations, ambient noise, and hardware issues. Any formal questions or concerns about the content, text or information contained within the body of this dictation should be directly addressed to the provider for clarification.
== END 2024-09-14 23:59 | disposition home or self-care (01) ==
LOC: SCTC 11:30
PROVIDERS: PCP Nurse Practitioner Family; Referring Provider Nurse Practitioner Family; Visit Provider Internal Medicine Hematology & Oncology
DX: C64.1 Malignant neoplasm of right kidney, except renal pelvis (principal); L30.9 Dermatitis, unspecified; Z90.5 Acquired absence of kidney; Z92.21 Personal history of antineoplastic chemotherapy; Z80.9 Family history of malignant neoplasm, unspecified; E11.9 Type 2 diabetes mellitus without complications; I10 Essential (primary) hypertension
CPT/HCPCS: 36591; 80053; 82378; 84443; 85025; 96365; 99212; A4216; J1642; G0463

== ENCOUNTER 2024-09-29 08:00 | Day surgery (SDC) | payer MEDICARE, BC, SELFPAY ==
[2024-09-28 11:30] VITALS: BMI 30.6
[2024-09-28 12:12] LABS: Basophils # (Auto) 0.1 Thou/mm3 (0.0-0.2); Basophils % (Auto) 1 % (0-2.5); Eosinophils # (Auto) 0.9 Thou/mm3 (0.0-0.5); Eosinophils % (Auto) 13 % (0-10); Hematocrit 45.3 % (41.0-53.0); Hemoglobin 15.8 g/dL (13.5-16.0); Immature Granulocytes Auto 0.02 Thou/mm3 (0.00-0.00); Lymphocytes # (Auto) 1.7 Thou/mm3 (1.0-4.8); Lymphocytes % (Auto) 24 % (10-50); Mean Corpuscular HGB Conc 34.9 g/dl (31.0-37.0); Mean Corpuscular Hemoglobin 30.1 pg (25.0-35.0); Mean Corpuscular Volume 86 fL (80-100); Monocytes # (Auto) 0.5 Thou/mm3 (0.0-0.8); Monocytes % (Auto) 7 % (0-12); Neutrophils # (Auto) 4.0 Thou/mm3 (1.8-7.7); Neutrophils % (Auto) 55 % (37-80); Nucleated Red Blood Cell # 0.00 Thou/mm3 (0.00-0.00); Nucleated Red Blood Cell % 0 /100 WBC (0); Platelet Count 198 Thou/mm3 (140-440); RDW Standard Deviation 42.6 fL (35.1-43.9); Red Blood Count 5.25 Miln/mm3 (4.50-5.90); White Blood Count 7.2 Thou/mm3 (3.8-10.6)
[2024-09-28 12:26] LABS: INR 1.0 (0.9-1.3); Partial Thromboplastin Time 24.7 Seconds (22.0-36.0); Prothrombin Time 10.5 Seconds (9.0-12.2)
[2024-09-28 12:27] LABS: Alanine Aminotransferase 23 U/L (10-49); Albumin, Serum 4.6 gm/dL (3.4-4.8); Albumin/Globulin Ratio 1.6 (1.2-2.2); Alkaline Phosphatase 99 U/L (46-116); Anion Gap 7 (7-16); Aspartate Amino Transferase 26 U/L (0-34); BUN/Creatinine Ratio 17 Ratio (12-20); Bilirubin,Total 0.4 mg/dL (0.3-1.2); Blood Urea Nitrogen 19 mg/dL (9-23); Calcium 10.6 mg/dL (8.3-10.6); Calcium (Corrected) 10.6 mg/dL (8.5-10.1); Carbon Dioxide 28.7 mMol/L (20.0-31.0); Chloride 107 mMol/L (98-107); Creatinine (Component) 1.1 mg/dL (0.6-1.3); Estimated Creatinine Clearance 73.3 mL/min (>60); Globulin 2.8 gm/dL (2.3-3.5); Glucose 102 mg/dL (74-106); Osmolality,Calculated 287 (275-295); Potassium 4.0 mMol/L (3.4-5.1); Sodium 143 mMol/L (136-145); Total Protein 7.4 gm/dL (5.7-8.2); eGFR > 60 See Note
[2024-09-29] VITALS (7 sets, daily range): BP systolic 106–157; BP diastolic 68–97; PULSE 65–75; RESP 13–16; TEMP 36.4–37.1; O2SAT 94–98
--- NOTE | 2024-09-29 06:00 | EKG_ITS ---
[facility] Test Date: 2024-09-29 Pat Name: JAYSON GRIJALVA Department: Room: - Gender: Male Donor Processor: KENNETH : 1955 Requested By: Reji Posada Order Number: [id number] Reading MD: Reji Posada Measurements Intervals [place] Rate: 63 P: 88 WI: 181 QRS: 23 QRSD: 75 T: 28 QT: 381 QTc: 392 Interpretive Statements SINUS RHYTHM Compared to ECG 11/12/2022 08:55:38 No significant changes /store/S0/[id number]/ecg/[id number].pdf
--- NOTE | 2024-09-29 11:49 | SUR.PHASEI ---
pt received from OR in recovery bay 4. pt asleep but responds to voice, breathing unlabored on room air. v/s stable. pt dressing to right wrist cdi. report received from Dr. Broussard and Leo PEREIRA.
--- NOTE | 2024-09-29 11:53 | PD.SUROPNT ---
Date of Procedure 09/29/24 Pre Op Diagnosis 1. Dupuytren's contracture little finger right hand 2. Dupuytren's contracture right palm ulnar side Post Op Diagnosis 1. Dupuytren's contracture little finger right hand with fixed flexion contracture at PIP joint 2 Dupuytren's contracture right palm ulnar side Procedure 1. Release of Dupuytren's contracture proximal phalanx right little finger 2. Release of Dupuytren's contracture) Findings Patient has got Dupuytren's contracture of the right little finger and also there is a contracture band on the ulnar side of the right palm. Patient is unable to extend his PIP joint. There is a extension lag of about 60 to 70 degrees. Beside that there is a scar nettie on the palmar side of the little finger and also a scar nettie on the palm which is few in numbers. Patient was operated few months back by a surgeon but it did not improve at all. Procedure Description Procedure. Patient was given general tracheal anesthesia. Once satisfactory anesthesia achieved a tourniquet was placed on right upper arm. Following that part was thoroughly prepped and draped. After using Esmarch the tourniquet pressure was raised to 250 mmHg Intravenous antibiotics was given at the time of anesthesia I skin incision was made starting at the DIP joint extending from laterally on the middle phalanx up to the ulnar side and then extending again proximally obliquely towards the radial side at the MCP joint crease. From there it was extended in the past more towards the ulnar side. This part of his incision length was about inch and a half or so. The skin was raised as a flap. A contracture band was present in the proximal phalanx and was extending to some degree into the middle phalanx as well. That contracture band was removed. Another contracture band was present in the palm. That was also excised. That band was very small band. Wound was irrigated with antibiotic solution. I tried to extend the digit at the PIP joint but there was significant contracture at the PIP joint hence extension could not be achieved fully. At the end of the procedure the extensor lag was about 30 degrees. So it did improve by 30 to 40 degrees. Following that the skin was closed with 3-0 Prolene in interrupted fashion. About 7 to 8 mL of quarter percent Marcaine was injected at the skin incision site. After cleaning the wound with hydrogen peroxide solution a sterile dressing was applied and tourniquet pressure was released Patient tolerated procedure well. Estimated blood loss 1 mL Prognosis I believe that it will be very difficult to release the contracture at the PIP joint. I will discuss this with the patient and if he wants I may have to refer him to hand surgeon for the same. Anesthesia GETA Pathology / specimen None Estimated Blood Loss 1 Surgeon Reji Cole MD Surgical Staff Operation Date: 09/29/24 10:25 <No data on this case meets the specified criteria>
--- NOTE | 2024-09-29 14:33 | ESHP_ITS ---
RE: JAYSON GRIJALVA : 1955 DATE OF ADMISSION: 09/29/2024 The patient came to my office on 09/28/2024 for detailed preop history and physical examination. HISTORY OF PRESENTING COMPLAINT: The patient has a contracture of the right little finger. The contracture is at the PIP joint and extending a little bit into the MCP joint as well as DIP joint. The patient also has a contracture band in the palm on the ulnar side. The patient's father stated that he was operated by a hand surgeon about 6-8 months back and there are transversely placed scar and 2 scars are extending to fourth and third digits. Another scar is extending to the little finger on the palmar side. The patient is unable to extend his right little finger at PIP joint. The patient wants something to be done about it. PAST MEDICAL HISTORY: The patient has a history of diabetes mellitus, high blood pressure. No history of asthma, seizures, chest pain, myocardial infarction, or bleeding disorder. PAST SURGICAL HISTORY: The patient had right shoulder surgery and cholecystectomy. Besides that, the patient had right hand surgery done for Dupuytren's contracture about 6-8 months back. DRUG HISTORY: The patient is on: 1. Xigduo 2. Glipizide 3. Insulin 4. Losartan 5. Hydroxyzine 6. Tamsulosin ALLERGIES: NO KNOWN ALLERGIES. FAMILY HISTORY AND SOCIAL HISTORY: The patient admits to smoking, drinking, and presently is not working. PHYSICAL EXAMINATION: GENERAL: Rather normal developed person. VITAL SIGNS: Pulse is 84. Blood pressure 146/72. NECK: Soft, supple. No masses. Trachea is centrally placed. CARDIOVASCULAR SYSTEM: First and second heart sound normal. No murmur heard. RESPIRATORY SYSTEM: Bilateral vesicular breath sounds. Chest is clear. ABDOMEN: Abdomen is soft. No masses. Bowel sounds present. RIGHT HAND: Examination revealed a scar nettie placed transversely on the palmar distal crease. The scar nettie is also extending towards the third and fourth digits. There is another scar nettie extending from the mid palm into the little finger on the palmar side in the middle of the phalanx of the proximal phalanx area. There is a flexion contracture at PIP joint. There is extension lag of about 60-70 degrees. Clinically, the patient has Dupuytren's contracture with a band present in the proximal phalanx of the little finger and a small band present in the palmar aspect as well. The patient was explained the diagnosis and prognosis. The patient was explained that probably the band has reformed. The patient wanted something to be done about it. I explained that there is a possibility that I may be able to improve his range of motion, but full extension may not be possible. I also explained that sometimes it is possible, but there is also possibility that full extension may not be achieved and that is because of the fixed flexion contracture at the PIP joint. This happens due to contracture of the capsules, etc. However, the patient wanted to proceed with surgery. I did not give him any guarantee. Risks of anesthesia was explained and that includes, but not limited to reaction to anesthetic agents, cardiac arrest and rarely it might be fatal. Risks of the operation includes infection and if that happens, the patient may need further surgical procedure. The patient with diabetes have much more risk. Also, I did not give any guarantee about full extension or full function of the little finger. After detailed discussion, the patient wanted to proceed with surgery. Surgery booked for 09/29/2024. Appropriate lab work is done. DT: 12:06:34 TT: 14:31:00 Ref: [id number] - TID: [id number]
== END 2024-09-29 12:45 | disposition home or self-care (01) ==
PROVIDERS: Anesthesiology; PCP Nurse Practitioner Family; Referring Provider Orthopaedic Surgery; Visit Provider Orthopaedic Surgery
PROC: (CPT 26055; principal; 2024-09-29 10:15)
DX: M72.0 Palmar fascial fibromatosis [Dupuytren] (principal); Z01.810 Encounter for preprocedural cardiovascular examination
CPT/HCPCS: 26123; 36415; 80053; 85025; 85610; 85730; 93005; A4217; A4649; J0690; J1100; J1580; J2371; J2704; J2765; J3010; J3490; J0665

== ENCOUNTER → 2025-01-05 | Outpatient (BNVA) | payer MEDICARE, BC, SELFPAY | END | disposition home or self-care (01) | PROVIDERS: PCP Nurse Practitioner Family; Referring Provider Nurse Practitioner Family; Visit Provider Urology | DX: N40.1 Benign prostatic hyperplasia with lower urinary tract symptoms (principal); C64.1 Malignant neoplasm of right kidney, except renal pelvis; I10 Essential (primary) hypertension; Z87.891 Personal history of nicotine dependence; E66.9 Obesity, unspecified; Z68.31 Body mass index [BMI] 31.0-31.9, adult | CPT/HCPCS: 99212; G0463 ==

== ENCOUNTER → 2025-01-25 | Outpatient (CLI) | payer MEDICARE, BC, SELFPAY ==
[2025-01-25 09:24] LABS: Basophils # (Auto) 0.0 Thou/mm3 (0.0-0.2); Basophils % (Auto) 1 % (0-2.5); Eosinophils # (Auto) 0.5 Thou/mm3 (0.0-0.5); Eosinophils % (Auto) 10 % (0-10); Hematocrit 43.9 % (41.0-53.0); Hemoglobin 15.2 g/dL (13.5-16.0); Immature Granulocytes Auto 0.01 Thou/mm3 (0.00-0.00); Lymphocytes # (Auto) 1.2 Thou/mm3 (1.0-4.8); Lymphocytes % (Auto) 22 % (10-50); Mean Corpuscular HGB Conc 34.6 g/dl (31.0-37.0); Mean Corpuscular Hemoglobin 28.5 pg (25.0-35.0); Mean Corpuscular Volume 82 fL (80-100); Monocytes # (Auto) 0.4 Thou/mm3 (0.0-0.8); Monocytes % (Auto) 7 % (0-12); Neutrophils # (Auto) 3.3 Thou/mm3 (1.8-7.7); Neutrophils % (Auto) 60 % (37-80); Nucleated Red Blood Cell # 0.00 Thou/mm3 (0.00-0.00); Nucleated Red Blood Cell % 0 /100 WBC (0); Platelet Count 176 Thou/mm3 (140-440); RDW Standard Deviation 40.7 fL (35.1-43.9); Red Blood Count 5.33 Miln/mm3 (4.50-5.90); White Blood Count 5.4 Thou/mm3 (3.8-10.6)
[2025-01-25 09:35] LABS: Glucose Estimated Average 223 mg/dL (80-131); Hemoglobin A1C 9.4 % Hgb (4.8-6.0)
[2025-01-25 09:40] LABS: Vitamin D 25 Hydroxy Total 29.8 ng/mL (7.3-40.2)
[2025-01-25 10:04] LABS: Alanine Aminotransferase 36 U/L (10-49); Albumin, Serum 4.6 gm/dL (3.4-4.8); Albumin/Globulin Ratio 1.6 (1.2-2.2); Alkaline Phosphatase 112 U/L (46-116); Anion Gap 11 (7-16); Aspartate Amino Transferase 35 U/L (0-34); BUN/Creatinine Ratio 14 Ratio (12-20); Bilirubin,Total 0.9 mg/dL (0.3-1.2); Blood Urea Nitrogen 19 mg/dL (9-23); Calcium 9.7 mg/dL (8.3-10.6); Calcium (Corrected) 9.7 mg/dL (8.5-10.1); Carbon Dioxide 27.0 mMol/L (20.0-31.0); Cardiac Risk Estimate 4.1 RATIO (4.0-6.7); Chloride 101 mMol/L (98-107); Cholesterol 154 mg/dL (132-200); Creatinine (Component) 1.4 mg/dL (0.6-1.3); Free T4 (Free Thyroxine) 1.42 ng/dL (0.89-1.76); Globulin 2.9 gm/dL (2.3-3.5); Glucose 273 mg/dL (74-106); HDL Cholesterol 38 mg/dL (40-60); LDL Cholesterol,Calculated 75 mg/dL (0-130); Osmolality,Calculated 289 (275-295); Potassium 4.0 mMol/L (3.4-5.1); Sodium 139 mMol/L (136-145); Thyroid Stimulating Hormone 1.22 uIU/mL (0.55-4.78); Total Protein 7.5 gm/dL (5.7-8.2); Triglycerides 203 mg/dL (30-150); eGFR 55 See Note
[2025-01-30 23:34] LABS: PSA, Free 0.38 ng/mL; PSA, Total 1.6 ng/mL (< OR = 4.0)
== END | disposition home or self-care (01) ==
LOC: COPL 08:25
PROVIDERS: PCP Family Medicine; Referring Provider Nurse Practitioner Family; Visit Provider Nurse Practitioner Family
DX: E11.21 Type 2 diabetes mellitus with diabetic nephropathy (principal); N40.1 Benign prostatic hyperplasia with lower urinary tract symptoms; Z13.29 Encounter for screening for other suspected endocrine disorder; E78.1 Pure hyperglyceridemia; E55.9 Vitamin D deficiency, unspecified
CPT/HCPCS: 36415; 80053; 80061; 82306; 83036; 84153; 84154; 84439; 84443; 85025